=== PATIENT | male | born 1970 | race Two or more races ===

== ENCOUNTER 2020-03-12 18:58 | Emergency (ER) | payer OTHER ==
[~2020-03-12] VITALS: Ht 182.9 cm; Wt 86.2 kg
--- NOTE | 2020-03-12 21:30 | NUR ---
URINE COLLECTED. SENT TO LAB
--- NOTE | 2020-03-12 21:30 | NUR ---
BIBS FOR C/O ABD PAIN, BLOATING AND OCCASIONAL NAUSEA X 3 MOS, - VOMITING OR DIARRHEA, LBM: TODAY
[2020-03-12] MEDS ORDERED: ONDANSETRON HCL/PF 4 MG/2 ML VIAL ONE (21:43)
[2020-03-12] MEDS ORDERED: MORPHINE SULFATE INJ 4 MG/ML DISP.SYRIN ONE (21:43)
[2020-03-12] MEDS: IV NS 0.9% 1,000 ML BAG IV ONE (21:44)
[2020-03-12] MEDS: MORPHINE SULFATE INJ 2 MG/ML DISP.SYRIN IV ONE (21:44)
[2020-03-12] MEDS: ONDANSETRON HCL/PF 4 MG/2 ML VIAL IVP ONE (21:44)
--- NOTE | 2020-03-12 21:45 | NUR ---
X RAY AT BED SIDE
[2020-03-12 21:49] LABS: BASOPHILS # (AUTO) 0.4 /CMM (0.0-0.2); BASOPHILS % (AUTO) 4.6 % (0.0-2.0); EOSINOPHILS % (AUTO) 1.3 % (0.0-6.0); HEMATOCRIT 51 % (39-51); HEMOGLOBIN 16.4 g/dL (13.5-17.5); LYMPHOCYTES # (AUTO) 1.8 /CMM (0.8-4.8); LYMPHOCYTES % (AUTO) 22.9 % (20.0-44.0); MEAN CORPUSCULAR HGB CONC 32 g/dl (31.0-36.0); MEAN CORPUSCULAR VOLUME 88 fL (80-96); MONOCYTES # (AUTO) 0.5 /CMM (0.1-1.30); MONOCYTES % (AUTO) 6.1 % (2.0-12.0); NEUTROPHILS # (AUTO) 5.2 /CMM (1.8-8.9); NEUTROPHILS % (AUTO) 65.1 % (43.0-81.0); PLATELET COUNT (AUTO) 223 /CMM (150-450); RED BLOOD CELL COUNT(AUTO) 5.77 MIL/uL (4.5-6.0)
[2020-03-12 21:57] LABS: BILIRUBIN,URINE MODERATE (NEGATIVE); BLOOD, URINE Small Ery/uL (NEGATIVE); COLOR,URINE AMBER (YELLOW); LEUKOCYTE ESTERASE ,URINE Negative (NEGATIVE); NITRITE, URINE Negative (NEGATIVE); PROTEIN,URINE 100 mg/dl (NEGATIVE); UGLUCOSE Negative (NEGATIVE)
[2020-03-12 22:24] LABS: BACTERIA,URINE Rare /HPF (None Seen); SQUAMOUS EPITHELIAL CELL,UR Few /HPF (None Seen); WBC,URINE NONE SEEN /HPF (0-3)
[2020-03-12 22:42] LABS: CARBON DIOXIDE 23 mmol/L (21-32); CHLORIDE 101 mmol/L (98-107); GLUCOSE 103 mg/dL (74-106); POTASSIUM 3.7 mmol/L (3.5-5.1); SODIUM SERUM 139 mmol/L (136-145); UREA NITROGEN, BLOOD 13 mg/dL (7-18)
[2020-03-12 23:00] LABS: ALANINE AMINOTRANSFERASE 118 U/L (12-78); ALBUMIN 3.6 g/dL (3.4-5.0); ALKALINE PHOSPHATASE 99 U/L (46-116); ASPARTATE AMINOTRANSFERASE 69 U/L (15-37); BILIRUBIN,DIRECT 1.5 mg/dL (0.0-0.2); BILIRUBIN,TOTAL 3.4 mg/dL (0.2-1.0); LIPASE 203 U/L (73-393); TOTAL PROTEIN, SERUM 8.6 g/dL (6.4-8.2)
--- NOTE | 2020-03-12 23:49 | NUR ---
covid swab obtained and sent to lab
--- NOTE | 2020-03-13 | NUR ---
MEL TENORIO AT BED SIDE
--- NOTE | 2020-03-13 00:10 | NUR ---
Pt is medically stable for D/C. IV removed. Catheter intact and site benign. Pressure and 4x4 applied to site. No bleeding noted.Patient discharged to home in stable condition. Rx and Written and verbal after care instructions given. Patient verbalizes understanding of instruction.
[2020-03-13 00:11] VITALS: BP 131/86
== END 2020-03-13 00:11 | disposition home or self-care (01) ==
LOC: ER 19:01
DX: I50.9 Heart failure, unspecified (principal); R10.84 Generalized abdominal pain; Z20.828 Contact with and (suspected) exposure to other viral communicable diseases; I25.2 Old myocardial infarction; R91.8 Other nonspecific abnormal finding of lung field; I51.7 Cardiomegaly
CPT/HCPCS: 36415; 71045; 74176; 80048; 80076; 81001; 83690; 84484; 85025; 93005; 96361; 96374; 96375; 99285; C9803; J2270; J2405; U0003

== ENCOUNTER 2020-03-14 12:55 | Emergency (ER) | payer OTHER ==
[~2020-03-14] VITALS: Ht 170.2 cm; Wt 95.3 kg
--- NOTE | 2020-03-14 13:06 | NUR ---
ASSUME PAT CARE. C/O MID ABDOMINAL PAIN W/ SOB X 3 DAYS NOW. PT STATES WAS SEEN HERE 3 DAYS AGO FOR THE SAME THING. PT STATES MILNIMAL URINE AND FEELS LIKE HE IS DISTENDED. GOWNED AND PLACED ON MONITOR. VSS. AWAITING MD ASHRAF.
--- NOTE | 2020-03-14 13:11 | NUR ---
DR RUEDA AT BEDSIDE FOR EVAL
[2020-03-14 13:47] LABS: BASOPHILS % (AUTO) 0.6 % (0.0-2.0); EOSINOPHILS % (AUTO) 0.6 % (0.0-6.0); HEMATOCRIT 48 % (39-51); HEMOGLOBIN 15.6 g/dL (13.5-17.5); LYMPHOCYTES % (AUTO) 28.5 % (20.0-44.0); MEAN CORPUSCULAR HGB CONC 33 g/dl (31.0-36.0); MEAN CORPUSCULAR VOLUME 87 fL (80-96); MONOCYTES # (AUTO) 0.4 /CMM (0.1-1.30); MONOCYTES % (AUTO) 6.2 % (2.0-12.0); NEUTROPHILS # (AUTO) 4.5 /CMM (1.8-8.9); NEUTROPHILS % (AUTO) 64.1 % (43.0-81.0); PLATELET COUNT (AUTO) 222 /CMM (150-450); RED BLOOD CELL COUNT(AUTO) 5.47 MIL/uL (4.5-6.0)
[2020-03-14 13:51] LABS: CALCIUM, SERUM 8.4 mg/dL (8.5-10.1); CARBON DIOXIDE 28 mmol/L (21-32); CHLORIDE 101 mmol/L (98-107); CREATININE 0.9 mg/dL (0.6-1.3); GLUCOSE 140 mg/dL (74-106); POTASSIUM 4.7 mmol/L (3.5-5.1); SODIUM SERUM 136 mmol/L (136-145); UREA NITROGEN, BLOOD 20 mg/dL (7-18)
[2020-03-14 13:57] LABS: ALANINE AMINOTRANSFERASE 74 U/L (12-78); ALBUMIN 2.7 g/dL (3.4-5.0); ALKALINE PHOSPHATASE 83 U/L (46-116); ASPARTATE AMINOTRANSFERASE 44 U/L (15-37); BILIRUBIN,DIRECT 1.3 mg/dL (0.0-0.2); BILIRUBIN,TOTAL 2.4 mg/dL (0.2-1.0); LIPASE 177 U/L (73-393)
[2020-03-14] MEDS ORDERED: DEXAMETHASONE SOD PHOSPHATE 10 MG/ML VIAL IV ONE (14:30)
[2020-03-14] MEDS ORDERED: DEXAMETHASONE SOD PHOSPHATE 10 MG/ML VIAL ONE (14:30)
--- NOTE | 2020-03-14 14:33 | NUR ---
U/S TECH AT BEDSIDE FOR GALLBLADDER ULTRASOUND
[2020-03-14 14:39] LABS: BILIRUBIN,URINE MODERATE (NEGATIVE); BLOOD, URINE Negative Ery/uL (NEGATIVE); COLOR,URINE YELLOW (YELLOW); LEUKOCYTE ESTERASE ,URINE Negative (NEGATIVE); NITRITE, URINE Negative (NEGATIVE); PH,URINE 5.5 (5.0-8.0); PROTEIN,URINE 30 mg/dl (NEGATIVE); UGLUCOSE 100 MG/DL mg/dL (NEGATIVE); UROBILINOGEN,URINE >=8.0 EU/dL (0.2)
[2020-03-14 14:41] LABS: BACTERIA,URINE Few /HPF (None Seen); RBC,URINE 0-2 /HPF (0-2); SQUAMOUS EPITHELIAL CELL,UR None Seen /HPF (None Seen)
[2020-03-14 14:42] LABS: HYALINE CASTS, URINE Rare /LPF (None Seen)
--- NOTE | 2020-03-14 14:49 | NUR ---
IV removed. Catheter intact and site benign. Pressure and 4x4 applied to site. No bleeding noted.Patient discharged to home in stable condition. Written and verbal after care instructions given. Patient verbalizes understanding of instruction.
--- NOTE | 2020-03-14 14:51 | NUR ---
Patient discharged to home in stable condition. Written and verbal after care instructions given. Patient verbalizes understanding of instruction.
[2020-03-14 14:52] VITALS: BP 138/79
== END 2020-03-14 14:52 | disposition home or self-care (01) ==
LOC: ER 12:57
DX: J18.9 Pneumonia, unspecified organism (principal); R18.8 Other ascites; I25.2 Old myocardial infarction; Z98.890 Other specified postprocedural states; Z60.2 Problems related to living alone
CPT/HCPCS: 36415; 71045; 76705; 80048; 80076; 81001 ×2; 83690; 84484; 85025; 85730; 93005; 96374; 99285; J1100

== ENCOUNTER 2020-12-01 23:33 | Inpatient (IN) | payer OTHER ==
[~2020-12-01] VITALS: Ht 182.9 cm; Wt 98.0 kg
--- NOTE | 2020-12-01 23:58 | NUR ---
PRESENTED TO THE ER FOR C/O BLE WEEPING EDEMA, REDNESS AND PAIN X 4 DAYS. A, OX4, PT APEARS VERY YELLOW IN COLOR, NOTED W. RELETIVELY DISTENDED STOMACH. PT WAS ASSISTED IN BED 2 ER, WS PLACED ON A MONITOR. VSS. WILL CONT TO MONITOR
[2020-12-02] MEDS ORDERED: VANCOMYCIN 1 GM VIAL ONE (00:28)
[2020-12-02] MEDS ORDERED: VANCOMYCIN 1 GM in IV D5W 250 ML IV ONE (00:30)
[2020-12-02 00:45] LABS: BASOPHILS # (AUTO) 0.1 K/uL (0.0-0.2); BASOPHILS % (AUTO) 0.9 % (0.0-2.0); EOSINOPHILS % (AUTO) 0.4 % (0.0-6.0); HEMATOCRIT 41 % (39-51); HEMOGLOBIN 13.8 g/dL (13.5-17.5); LYMPHOCYTES # (AUTO) 1.4 K/uL (0.8-4.8); LYMPHOCYTES % (AUTO) 19.2 % (20.0-44.0); MEAN CORPUSCULAR HGB CONC 34 g/dl (31.0-36.0); MEAN CORPUSCULAR VOLUME 98 fL (80-96); MONOCYTES # (AUTO) 0.5 K/uL (0.1-1.30); NEUTROPHILS # (AUTO) 5.5 K/uL (1.8-8.9); NEUTROPHILS % (AUTO) 72.5 % (43.0-81.0); PLATELET COUNT (AUTO) 182 K/uL (150-450); RED BLOOD CELL COUNT(AUTO) 4.21 MIL/uL (4.5-6.0); WHITE BLOOD COUNT (AUTO) 7.5 K/uL (4.3-11.0)
[2020-12-02 01:18] LABS: ALANINE AMINOTRANSFERASE 25 U/L (12-78); ALBUMIN 1.8 g/dL (3.4-5.0); ALKALINE PHOSPHATASE 182 U/L (46-116); ASPARTATE AMINOTRANSFERASE 44 U/L (15-37); BILIRUBIN,DIRECT 8.9 mg/dL (0.0-0.2); BILIRUBIN,TOTAL 11.2 mg/dL (0.2-1.0); CARBON DIOXIDE 32 mmol/L (21-32); CHLORIDE 97 mmol/L (98-107); CREATININE 0.8 mg/dL (0.6-1.3); GLUCOSE 88 mg/dL (74-106); SODIUM SERUM 138 mmol/L (136-145); TOTAL PROTEIN, SERUM 7.2 g/dL (6.4-8.2); UREA NITROGEN, BLOOD 13 mg/dL (7-18)
[2020-12-02 01:19] LABS: POTASSIUM 2.5 mmol/L (3.5-5.1)
--- NOTE | 2020-12-02 01:30 | NUR ---
US TECH AT BED SIDE
[2020-12-02 01:46] LABS: D-DIMER 14.38 mg/L(FEU (0.17-0.50)
[2020-12-02] MEDS ORDERED: IV PREMIX D5 1/2NS + KCL 1,000 ML IV ONE ×2 (02:00→02:21)
[2020-12-02] MEDS ORDERED: POTASSIUM CHLORIDE 20 MEQ TAB.PRT.SR PO ONE ×2 (02:00→02:21)
--- NOTE | 2020-12-02 02:19 | NUR ---
panel paged per dr phan.
--- NOTE | 2020-12-02 02:34 | NUR ---
316-2 ACCORDING TO NURSING POLICY INTERN.
[2020-12-02] MEDS ORDERED: ENOXAPARIN SODIUM 60 MG/0.6 ML DISP.SYRIN SQ ONE (02:40)
[2020-12-02] MEDS ORDERED: ENOXAPARIN SODIUM 30 MG/0.3 ML DISP.SYRIN ONE (02:40)
--- NOTE | 2020-12-02 02:49 | NUR ---
REPORT GIVEN TO LIANA ESPINOZA
--- NOTE | 2020-12-02 02:53 | NUR ---
PT DOES NOT REMEMBER THE NAME OF HIS HOME MEDS AND DOES NOT HAVE THE LIST WITH HIM,. UNABLE TO DO THE MED RECON
--- NOTE | 2020-12-02 02:58 | NUR ---
PT WAS TRANSFERRED TO 316 UNDER ACLS
[2020-12-02] MEDS ORDERED: Z GUARD REMEDY 2 OZ OINT TP PRN (03:00)
[2020-12-02] MEDS ORDERED: ONDANSETRON HCL/PF 4 MG/2 ML VIAL IVP PRN (03:00)
[2020-12-02] MEDS ORDERED: ACETAMINOPHEN 325 MG TABLET PO PRN (03:00)
[2020-12-02] MEDS ORDERED: ENOXAPARIN SODIUM 80 MG/0.8 ML DISP.SYRIN SQ ONE (03:00)
[2020-12-02] MEDS ORDERED: ZOLPIDEM TARTRATE 5 MG TABLET PO PRN (03:00)
[2020-12-02] MEDS ORDERED: MAGNESIUM HYDROXIDE 30 ML UDC PO PRN (03:00)
[2020-12-02] MEDS ORDERED: MORPHINE SULFATE INJ 2 MG/ML DISP.SYRIN IV PRN (03:20)
--- NOTE | 2020-12-02 03:35 | NUR ---
MUSICAL PERFORMERSENIOR PENSIONS ADMINISTRATOR NOTES RECEIVED PT VIA VINCENT TO RM.316-2 ACCOMPANIED BY 2 STAFF/RN. PT A/OX4, PRIMARILY EMIRATI, BUT SPEAKS WELSH WELL. PT C/O PAIN 10/10 ON HIS L-LEG DOWN TO HIS ANKLE. CALLED TO [facility] AND OBTAINED ORDER: MORPHINE 2MG IV Q4HR PRN. CALLED TO PHARMACY AND VERIFIED, AND GIVEN TO PT SOON MED BECAME ACTIVE. PT PLACED IN COMFORTABLE POSITION, PREFERS TO LIE DOWN ON HIS L-SIDE. PROVIDED ORIENTATION TO ROOM AND STAFF. HEALTH/MED TEACHINGS DONE. PT VERBALIZED UNDERSTANDING. PT PLACED ON TELE MONITOR, AND CURRENTLY READS SR, HR 97. PT IN NO ACUTE DISTRESS. SAFETY MEASURES IN PLACE, BED IN LOWEST LOCKED POSITION, S/R UP X2, CALL LIGHT AND TABLE WITHIN EASY REACH.
--- NOTE | 2020-12-02 04:03 | NUR ---
RN NOTE REASSESSED PAIN, PT VERBALIZED 1/10 LEVEL.
[2020-12-02 04:25] VITALS: BP 141/71
--- NOTE | 2020-12-02 06:30 | NUR ---
RN NOTE PT ABLE TO AMBULATE TO BR, SLOWLY WITH STANDBY ASSIST, STATES LEG PAIN IS TOLERABLE.
[2020-12-02] MEDS ORDERED: METF-440 PO (07:24)
[2020-12-02] MEDS ORDERED: FERR325T24 PO (07:24)
[2020-12-02] MEDS ORDERED: APIX5TAB PO (07:24)
[2020-12-02] MEDS ORDERED: CARV6.252 PO (07:24)
[2020-12-02] MEDS ORDERED: FURO40TA5 PO (07:24)
[2020-12-02] MEDS ORDERED: POTA-10 PO (07:24)
[2020-12-02] MEDS ORDERED: ATOR10TA PO (07:24)
[2020-12-02] MEDS ORDERED: PANT40TA49 PO (07:24)
[2020-12-02] MEDS ORDERED: ASPI-1169 PO (07:24)
[2020-12-02] MEDS ORDERED: IPRA12.9 INH (07:24)
[2020-12-02 08:17] VITALS: BP 106/76
--- NOTE | 2020-12-02 09:00 | NUR ---
tele repairer switchgear: cardio consult seen and examined by dr. drew with new orders. orders acknowledged.
[2020-12-02] MEDS: PANTOPRAZOLE 40 MG TABLET.DR PO SCH (09:04)
[2020-12-02] MEDS: IPRATROPIUM NEB FS 0.5 MG/2.5 ML AMPUL.NEB NEB SCH ×2 (09:20→20:18)
[2020-12-02] MEDS: METFORMIN 500 MG TABLET PO SCH ×2 (09:48→16:53)
[2020-12-02] MEDS: POTASSIUM CHLORIDE 20 MEQ TAB.PRT.SR PO SCH ×6 (09:48→20:18)
[2020-12-02] MEDS: CARVEDILOL 6.25 MG TABLET PO SCH ×2 (09:48→16:54)
[2020-12-02 12:00] VITALS: BP 96/74
--- NOTE | 2020-12-02 13:15 | NUR ---
tele manuscript editor: md visit seen and examined by dr. fleming at this time and updated plan of care. pt verbalized understanding. ble still with redness and swelling, weeping decrease. will continue to monitor.
[2020-12-02] MEDS ORDERED: INSULIN REGULAR, HUMAN 100 UNIT/ML 3 ML VIAL SQ PRN (13:30)
[2020-12-02] MEDS ORDERED: DEXTROSE 50%-WATER 50 ML DISP.SYRIN IV PRN (13:30)
--- NOTE | 2020-12-02 13:35 | NUR ---
tele medical laboratory technical officer: notes dr. leung notified re: consult to ble ulcers, spoke to him over the phone. pt made aware.
--- NOTE | 2020-12-02 14:08 | NUR ---
tele neck fitter: notes pt for nm pulmonary perfusion with/ventilation and verbalized understanding. consent signed. no distress noted. instructed to call for assistance.
[2020-12-02 14:12] LABS: BILIRUBIN,URINE LARGE (NEGATIVE); COLOR,URINE AMBER (YELLOW); LEUKOCYTE ESTERASE ,URINE TRACE (NEGATIVE); NITRITE, URINE POSITIVE (NEGATIVE); PH,URINE 5.5 (5.0-8.0); PROTEIN,URINE 100 mg/dl (NEGATIVE); UGLUCOSE NEGATIVE (NEGATIVE); UROBILINOGEN,URINE >=8.0 EU/dL (0.2)
[2020-12-02] MEDS: CEFTRIAXONE 1 G in IV D5W 50 ML IV SCH (14:36)
[2020-12-02] MEDS: FUROSEMIDE 40 MG/4 ML VIAL IV SCH ×3 (14:36→22:56)
[2020-12-02 14:38] LABS: CREATININE, URINE 170.1 MG/DL (30.0-125.0); URINE TOTAL PROTEIN 118.3 mg/dL (0-11.9)
[2020-12-02 15:08] LABS: BACTERIA,URINE 1+ /HPF (None Seen)
[2020-12-02 16:10] LABS: CALCIUM, SERUM 7.6 mg/dL (8.5-10.1); CREATININE 0.9 mg/dL (0.6-1.3); POTASSIUM 3.9 mmol/L (3.5-5.1)
[2020-12-02 16:14] VITALS: BP 106/66
[2020-12-02] MEDS: APIXABAN 5 MG TABLET PO SCH (16:53)
[2020-12-02] MEDS: BLOOD SUGAR DIAGNOSTIC 1 EACH STRIP IN SCH ×2 (17:16→21:07)
--- NOTE | 2020-12-02 18:45 | NUR ---
m/s finish patcher: dpm consult seen and examined by dr. chong with orders. orders acknowledged.
--- NOTE | 2020-12-02 19:00 | NUR ---
in be alert and orientated x$ speech clear good eye contact moviivg all extremities patricia legs red swollen skin tough silvadene ordered and started tonight to both lgs explaining to the patients the benefits of this cream left open to air
--- NOTE | 2020-12-02 19:00 | NUR ---
tele bobbin hauler: notes report given to annemarie santillan) for continuity of care.
[2020-12-02 20:00] VITALS: BP_SYST 89; BP_SYST 98; BP_DIAS 62; BP_DIAS 69
[2020-12-02 22:56] VITALS: BP 86/62
[2020-12-03] VITALS: BP 90/67
[2020-12-03 04:00] VITALS: BP 96/70
--- NOTE | 2020-12-03 04:17 | NUR ---
CLOSING NOTES: noted he is able to change his own position in the bed patricia legs red and swollen started the silvadene cream treatment his B/P is running under 95 systolic thru the night not given the 3rd dose of lasix d/t this his urine is tea colored void in the urinal SR on the game manager thru the night
[2020-12-03] MEDS: BLOOD SUGAR DIAGNOSTIC 1 EACH STRIP IN SCH ×2 (06:08→12:00)
[2020-12-03 06:49] LABS: BASOPHILS # (AUTO) 0.1 K/uL (0.0-0.2); BASOPHILS % (AUTO) 1.2 % (0.0-2.0); EOSINOPHILS % (AUTO) 0.6 % (0.0-6.0); HEMATOCRIT 37 % (39-51); HEMOGLOBIN 12.3 g/dL (13.5-17.5); LYMPHOCYTES # (AUTO) 1.7 K/uL (0.8-4.8); LYMPHOCYTES % (AUTO) 24.4 % (20.0-44.0); MEAN CORPUSCULAR HGB CONC 34 g/dl (31.0-36.0); MEAN CORPUSCULAR VOLUME 98 fL (80-96); MONOCYTES # (AUTO) 0.5 K/uL (0.1-1.30); MONOCYTES % (AUTO) 6.4 % (2.0-12.0); NEUTROPHILS # (AUTO) 4.8 K/uL (1.8-8.9); NEUTROPHILS % (AUTO) 67.4 % (43.0-81.0); PLATELET COUNT (AUTO) 183 K/uL (150-450); RED BLOOD CELL COUNT(AUTO) 3.74 MIL/uL (4.5-6.0); WHITE BLOOD COUNT (AUTO) 7.2 K/uL (4.3-11.0)
[2020-12-03] MEDS ORDERED: PANTOPRAZOLE 40 MG TABLET.DR PO SCH (07:30)
[2020-12-03 07:32] LABS: ALANINE AMINOTRANSFERASE 19 U/L (12-78); ALBUMIN 1.6 g/dL (3.4-5.0); ALKALINE PHOSPHATASE 142 U/L (46-116); ASPARTATE AMINOTRANSFERASE 35 U/L (15-37); BILIRUBIN,TOTAL 9.8 mg/dL (0.2-1.0); CALCIUM, SERUM 7.7 mg/dL (8.5-10.1); CARBON DIOXIDE 32 mmol/L (21-32); CHLORIDE 98 mmol/L (98-107); GLUCOSE 91 mg/dL (74-106); PHOSPHORUS 3.4 mg/dL (2.5-4.9); POTASSIUM 3.7 mmol/L (3.5-5.1); SODIUM SERUM 137 mmol/L (136-145); TOTAL PROTEIN, SERUM 6.2 g/dL (6.4-8.2); UREA NITROGEN, BLOOD 17 mg/dL (7-18)
[2020-12-03 07:40] LABS: LDL 41 mg/dL (0-99); THYROID STIMULATING HORMONE 3.421 uIU/mL (0.358-3.74); TRIGLYCERIDES 101 mg/dL (30-150)
[2020-12-03] MEDS: PANTOPRAZOLE 40 MG TABLET.DR PO SCH (07:41)
--- NOTE | 2020-12-03 07:46 | NUR ---
MS/RN OPENING NOTES RECEIVED PATIENT ON BED AWAKE ALERT AND ORIENTEDX4. PATIENT IS ON ROOM AIR RIGHT NOW AND PATIENT VERBALIZED OXYGEN IS JUST FOR COMFORT. PATIENT IN NO APPARENT RESPIRATORY DISTRESS NOTED. NO COMPLAINED OF PAIN NOTED AT THIS TIME. WILL CONTINUE OT MONITOR.
[2020-12-03 08:02] VITALS: BP 94/70
[2020-12-03] MEDS: IPRATROPIUM NEB FS 0.5 MG/2.5 ML AMPUL.NEB NEB SCH (08:27)
[2020-12-03] MEDS: POTASSIUM CHLORIDE 20 MEQ TAB.PRT.SR PO SCH (08:32)
[2020-12-03] MEDS: METFORMIN 500 MG TABLET PO SCH (08:32)
[2020-12-03 09:00] VITALS: BP 94/70
[2020-12-03] MEDS: CARVEDILOL 6.25 MG TABLET PO SCH (09:00)
[2020-12-03] MEDS: APIXABAN 5 MG TABLET PO SCH (09:14)
[2020-12-03] MEDS: SILVER SULFADIAZINE 50 GM JAR TP SCH ×2 (09:18→12:03)
[2020-12-03 09:22] LABS: CHOLESTEROL 45 mg/dL (<200)
[2020-12-03 09:41] LABS: HDL CHOLESTEROL < 10 mg/dL (40-60)
--- NOTE | 2020-12-03 11:45 | NUR ---
"SS consult SS consult requested for homelessness. Pt is a 50-year-old, male. SW met with pt at his bedside in the med-surg unit. Pt was alert and oriented x4. Pt's behavior was cooperative. Pt was in a euthymic mood with an anxious affect. Pt appeared well-groomed and appropriately dressed. Per chart, pt presented to the ED on 12/02/20. Pt stated that he is currently homeless and has been homeless for the last four months. Pt provided SW with his updated contact information [[phone]]. Pt has been living on the street or in his car. Pt was previously living with his spouse. Pt is not legally from his spouse but is no longer able to live with his spouse. Pt stated that he is occasionally able to visit his children. Pt stated that his spouse is his primary source of support at this time, and most of his family live in [facility]. Pt reported that he is ambulatory with a walker. Pt is currently receiving SSDI as a source of income. Pt is independent with his ADL's. Pt denied hx of substance use. Pt denied hx of mental illness. Pt denied current SI/HI. SW offered the pt homeless resources. Pt accepted the resources and thanked SW. Pt signed the homeless waiver and SW filed the waiver in the pt's chart. Pt stated that he plans to return to his prior living arrangement at the time of D/C. Pt plans to return to his car as he is concerned that it may get towed away. Pt stated that he is able to arrange transportation from the hospital independently. PLAN: Pt plans to return to his prior living arrangement at the time of D/C. No further SS intervention at this time, however, SW will remain available as needed. RESOURCES: Year-round shelters: [facility] [place] [address] [place] [address] ; [facility] [place] [address] [place] [address]; [facility] [address] [facility] [address] S[address] 4 | [facility] [place] Provider: First to Serve Address: [address] [place] [address], [facility] # of Beds: 48 Population Served: [facility] Provider: First to Serve Address: [address] [facility], [address] # of Beds: 73 Population Served: [place] S[place] 6 | [facility] Provider: [facility] Address: [address] [facility] [address] # of Beds: 63 Population Served: [place] SPA 3 | [facility] Provider: [facility] [place] Address: [address] [facility], [address] # of Beds: 75 Population Served: [place] S[place] 8 | [facility] Provider: [facility] [place] Address: [address] [facility], [address] # of Beds: 80 Population Served: [place] [facility] 1 | [facility] Provider: [facility] [place] Address: [address] [place] [address], [facility] # of Beds: 85 Population Served: [facility] 2 | [facility] Provider: [place] [facility] Address: Confidential (please call for location) # of Beds: 52 Population Served: [place] [facility] 4 | [facility] Provider: [facility] Address: [address] [facility], [address] # of Beds: 49 Population Served: [place] [facility] Provider: First To Serve Address: [address] [facility], [address] # of Beds: 27 Population Served: [place] Hygiene: [facility]: [address] [place] ; [facility] [facility] [address] [facility] ; [facility] [address] . Food Resources: [place] [facility] at [facility]- [address] [place]; Meet Each Need with [facility]ign[facility] ([facility]) [id number] [place] [address]; [facility] [address] [facility]; [facility] [address] [place] [address] [place]. Mental Health resources provided: [facility] [address] [place] [address] ; [facility] [place] [address] [address], [place] [address] ; [facility] [address] [facility] [place], [place] [id number] ; [facility] [address] [place], [place] [id number] Healthcare Clinics: [facility] [address] [facility], [address] [place]. [place] ; [facility] [address] [facility] [address] [place] [address]; [facility] [address] [facility]. [place] [phone] Counseling--Outpatient [facility] [address] [facility], [place] [address] (Specializes in in-depth psychotherapy for emotional distress: anxiety, depression, interpersonal conflicts, life transitions, childhood abuse) PSYCHIATRIC OUTPATIENT SERVICES [facility] Partial Hospitalization and Intensive Outpatient Program (Managed Care and [place] Only) [address] [facility] [id number] [facility] Partial Hospitalization and Outpatient Program [address] [address] [facility]. [address] [place], [place] [id number] [facility] Partial Hospitalization and Outpatient Program [address] [place], [place] [phone] [facility] [place] [facility] [address] [facility]. [address] [place], [place] [phone] [facility] Partial Hospitalization and Outpatient Program [address] [address], [place] [phone] "
[2020-12-03 12:06] LABS: *SPE A/G RATIO 0.5 (0.7-1.7); *SPE ALPHA-1-GLOBULIN 0.4 g/dL (0.0-0.4); *SPE ALPHA-2-GLOBULIN 0.6 g/dL (0.4-1.0); *SPE BETA GLOBULIN 1.1 g/dL (0.7-1.3); *SPE M-SPIKE Not Observed g/dL (Not Observed)
--- NOTE | 2020-12-03 12:25 | NUR ---
RN NOTES PATIENT IS OUT IN THE UNIT. [facility] NURSE PRACTITIONER BY [employer]
[2020-12-03] MEDS ORDERED: MORPHINE SULFATE INJ 2 MG/ML DISP.SYRIN IV PRN (12:30)
--- NOTE | 2020-12-03 13:20 | NUR ---
rn notes patient came back from nuclear medicine procedure.
[2020-12-03] MEDS: CEFTRIAXONE 1 G in IV D5W 50 ML IV SCH (13:30)
[2020-12-03] MEDS ORDERED: ZOLP5TAB2 PO (14:17)
[2020-12-03] MEDS ORDERED: HYDR-3972 PO (14:17)
[2020-12-03] MEDS ORDERED: SULF1TAB48 PO (14:17)
[2020-12-03] MEDS ORDERED: CEPH500C2 PO (14:17)
--- NOTE | 2020-12-03 15:22 | NUR ---
RN NOTES PATIENT IS ALERT AND ORIENTED X4. PATIENT IS ON ROOM AIR. PATIENT IN NO APPARENT RESPIRATORY DISTRESS NOTED. NO COMPLAINED OF NOTED. SEEN AND EXAMINED BY MD WITH ORDERS MADE AND CARRIED OUT. ALL DUE MEDICATIONS WAS GIVEN. DISCHARGED INSTRUCTIONS WAS GIVEN AND PATIENT VERBALIZED UNDERSTANDING. PATIENT LEFT THE HOSPITAL IN MEDICALLY STABLE CONDITION. PATIENT IS A SELF CARE AND WENT BACK TO STREET. TAP CARD WAS PROVIDED.
== END 2020-12-03 15:00 | disposition home or self-care (01) | DRG 198 ==
LOC: ER 23:36 → TRANSITION 12-02 02:34 → TELE 12-02 02:35 → MED 12-03 08:05
PROVIDERS: ADMIT Nurse Practitioner Acute Care; ATTEND Nurse Practitioner Acute Care
DX: I25.10 Atherosclerotic heart disease of native coronary artery without angina pectoris (principal); J90 Pleural effusion, not elsewhere classified; I42.9 Cardiomyopathy, unspecified; E44.0 Moderate protein-calorie malnutrition; L02.416 Cutaneous abscess of left lower limb; I11.0 Hypertensive heart disease with heart failure; I50.20 Unspecified systolic (congestive) heart failure; R18.8 Other ascites; L03.115 Cellulitis of right lower limb; L03.116 Cellulitis of left lower limb; K74.60 Unspecified cirrhosis of liver; K76.0 Fatty (change of) liver, not elsewhere classified; K82.8 Other specified diseases of gallbladder; E78.5 Hyperlipidemia, unspecified; E87.6 Hypokalemia; I25.2 Old myocardial infarction; E11.9 Type 2 diabetes mellitus without complications; Z98.890 Other specified postprocedural states; F17.210 Nicotine dependence, cigarettes, uncomplicated; Z79.01 Long term (current) use of anticoagulants; I87.2 Venous insufficiency (chronic) (peripheral); I87.8 Other specified disorders of veins; F10.11 Alcohol abuse, in remission; Y90.9 Presence of alcohol in blood, level not specified; J98.11 Atelectasis; E66.9 Obesity, unspecified; Z68.29 Body mass index [BMI] 29.0-29.9, adult; I89.0 Lymphedema, not elsewhere classified; K80.20 Calculus of gallbladder without cholecystitis without obstruction
CPT/HCPCS: 36415; 71045-TC; 71250-TC; 73600-TC; 76700-TC; 78582; 80048-TC; 80053-TC; 80061-TC; 80076-TC; 81001; 82140-TC; 82570-TC; 82962-TC; 83735-TC; 83880; 84100-TC; 84132-TC; 84155; 84155-TC; 84165; 84443-TC; 84484-TC; 85025-TC; 85378-TC; 85730-TC; 87040-TC; 87070-TC; 87081-TC; 87086-TC; 87186-TC; 93307-TC; 93970-TC; 94799-TC; C9803; G0378; J0696; J1650; J1815; J1940; J2270; J2405; J3370; J3490; J7050; J7060

== ENCOUNTER 2021-02-09 21:30 | Inpatient (IN) | payer OTHER ==
[~2021-02-09] VITALS: Ht 167.6 cm; Wt 92.1 kg
[2021-02-09] MEDS: POTASSIUM CL. PREMIX PERIPHER. 50 ML IV SCH
[~2021-02-09 21:30] MED LIST: APIX5TAB PO; ASPI-1169 PO; ATOR10TA PO; CARV6.252 PO; CEPH500C2 PO; FERR325T24 PO; FURO40TA5 PO; HYDR-3972 PO; IPRA12.9 INH; METF-440 PO; PANT40TA49 PO; POTA-10 PO; SULF1TAB48 PO; ZOLP5TAB2 PO
--- NOTE | 2021-02-09 21:49 | NUR ---
PT BIBFAMILY C/O CP AND GEN ABD PAIN X2 DAYS. +5 DAYS CONSTIPATED. PLACED IN BED 6 ON MONITOR AND PULSE OX. AWAITING ER MD FOR EVAL AND ORDERS. NO ACUTE DISTRESS NOTED. VITALS STABLE.
[2021-02-09 21:59] LABS: BASOPHILS # (AUTO) 0.1 K/uL (0.0-0.2); BASOPHILS % (AUTO) 1.1 % (0.0-2.0); EOSINOPHILS % (AUTO) 1.3 % (0.0-6.0); HEMATOCRIT 41 % (39-51); HEMOGLOBIN 13.6 g/dL (13.5-17.5); LYMPHOCYTES # (AUTO) 1.5 K/uL (0.8-4.8); LYMPHOCYTES % (AUTO) 23.1 % (20.0-44.0); MEAN CORPUSCULAR HGB CONC 33 g/dl (31.0-36.0); MEAN CORPUSCULAR VOLUME 101 fL (80-96); MONOCYTES # (AUTO) 0.5 K/uL (0.1-1.30); MONOCYTES % (AUTO) 7.8 % (2.0-12.0); NEUTROPHILS # (AUTO) 4.3 K/uL (1.8-8.9); NEUTROPHILS % (AUTO) 66.7 % (43.0-81.0); PLATELET COUNT (AUTO) 157 K/uL (150-450); RED BLOOD CELL COUNT(AUTO) 4.05 MIL/uL (4.5-6.0); WHITE BLOOD COUNT (AUTO) 6.5 K/uL (4.3-11.0)
[2021-02-09 22:55] LABS: ALANINE AMINOTRANSFERASE 36 U/L (12-78); ALBUMIN 2.2 g/dL (3.4-5.0); ALKALINE PHOSPHATASE 168 U/L (46-116); ASPARTATE AMINOTRANSFERASE 50 U/L (15-37); BILIRUBIN,DIRECT 1.8 mg/dL (0.0-0.2); BILIRUBIN,TOTAL 2.1 mg/dL (0.2-1.0); CALCIUM, SERUM 7.1 mg/dL (8.5-10.1); CARBON DIOXIDE 34 mmol/L (21-32); CHLORIDE 90 mmol/L (98-107); CREATININE 0.9 mg/dL (0.6-1.3); GLUCOSE 110 mg/dL (74-106); SODIUM SERUM 130 mmol/L (136-145); TOTAL PROTEIN, SERUM 7.2 g/dL (6.4-8.2); UREA NITROGEN, BLOOD 13 mg/dL (7-18)
[2021-02-09 23:26] LABS: POTASSIUM 2.6 mmol/L (3.5-5.1)
[2021-02-09] MEDS ORDERED: POTASSIUM CHLORIDE 20 MEQ TAB.PRT.SR PO ONE (23:30)
[2021-02-10] MEDS: POTASSIUM CL. PREMIX PERIPHER. 50 ML IV SCH ×3 (01:00→03:00)
--- NOTE | 2021-02-10 01:16 | NUR ---
MRSA SWAB COLLECTED AND SENT TO LAB. PATIENT'S BELONGINGS LIST DONE.
--- NOTE | 2021-02-10 01:35 | NUR ---
RESTING COMFORTABLY. VSS.
--- NOTE | 2021-02-10 02:13 | NUR ---
REPORT GIVEN TO NAYLA GAINES FOR ALYSSA
[2021-02-10] MEDS ORDERED: ZOLPIDEM TARTRATE 5 MG TABLET PO PRN (02:30)
[2021-02-10] MEDS ORDERED: MAGNESIUM HYDROXIDE 30 ML UDC PO PRN (02:30)
[2021-02-10] MEDS ORDERED: ONDANSETRON HCL/PF 4 MG/2 ML VIAL IVP PRN (02:30)
[2021-02-10] MEDS ORDERED: Z GUARD REMEDY 2 OZ OINT TP PRN ×2 (02:30→08:30)
--- NOTE | 2021-02-10 02:45 | NUR ---
RN NOTES Received pt. from ER with Dx. of CHF , CP a/ox3, with period of confusion, SR on tele monitor HR-68, noticed patient has abdominal ascites, admission instruction was rendered, patient doesn't want to cooperate for skin assessment but manage to persuade him to let us do the skin assessment. O2 at 3L saturating 98%, denies pain, no SOB, patient doesn't want to answer our admission questions , old chart was pulled out from the computer, call light within reach, siderailsupx2, will continue to monitor
[2021-02-10 04:25] VITALS: BP 128/63
--- NOTE | 2021-02-10 06:55 | NUR ---
RN NOTES Patient is sleeping but arousable, not in distress, no pain noted, call light within reach, siderailsupx2, pt. needs attended
--- NOTE | 2021-02-10 07:15 | NUR ---
SPRINKLER FITTER APPRENTICE OPENING NOTES RECEIVED PATIENT RESTING IN BED. PATIENT IS A/O X3. PATIENT IS BREATHING EVENLY AND NONLABORED ON 4 LPM VIA NASAL CANNULA. NO SIGNS OF DISTRESS NOTED. PATIENT DOES NOT COMPLAIN OF PAIN AT THIS TIME. PATIENT ON TELE MONITOR SHOWING NSR. PATIENT HAS LAC # 18 GAUGE PATENT AND INTACT. PATIENT NOTED WITH LOWER EXTREMITY WOUNDS, WOUND CONSULT ORDERED. SAFETY MEASURES IN PLACE BED LOW LOCKED CALL LIGHT WITHIN REACH, BED ALARM ON. WILL CONTINUE TO MONITOR
--- NOTE | 2021-02-10 08:16 | NUR ---
WOUND CARE CONSULT: PT PRESENTS WITH ULCER TO LEFT LOWER LEG, PRESENT ON ADMISSION. DR DEUTSCH NOTIFIED OF DPM CONSULT REQUEST. RECOMMENDATIONS MADE FOR SKIN PROTECTION. DISCUSSED WITH NURSING STAFF. IN AGREEMENT WITH PLAN OF CARE. Addendum: 02/10/21 at 0818 by VAISHNAVI CALIXTO WNDNU Amended: Links added.
[2021-02-10] MEDS: POTASSIUM CHLORIDE 20 MEQ TAB.PRT.SR PO SCH (08:20)
[2021-02-10] MEDS: FUROSEMIDE 40 MG/4 ML VIAL IV SCH (08:20)
[2021-02-10] MEDS: ACETAMINOPHEN 325 MG TABLET PO PRN (08:27)
[2021-02-10 08:40] VITALS: BP 92/73
[2021-02-10] MEDS: Z GUARD REMEDY 2 OZ OINT TP SCH (08:45)
--- NOTE | 2021-02-10 09:45 | NUR ---
RN NOTE PATIENT IS COMPLAINING OF SEVERE PAIN IN THE LOWER BACK, TYLENOL WAS GIVEN NOT EFFECTIVE. MD NOTIFIED GAVE ONE TIME ORDER FOR TORADOL 30 MG IVP FOR PAIN. WILL CONTINUE TO MONITOR
[2021-02-10] MEDS ORDERED: KETOROLAC TROMETHAMINE INJ 30 MG/ML VIAL IV PRN (10:00)
[2021-02-10] MEDS ORDERED: ZOLP5TAB8 PO (11:35)
--- NOTE | 2021-02-10 12:36 | NUR ---
RN NOTE PATIENT COMPLAINED OF PAIN AT IV SITE. ASKED TO REMOVE. IV ACCESS REMOVED CATHETER TIP INTACT, PRESSURE DRESSING APPLIED, NO BLEEDING NOTED. NEW IV ACCESS PLACE ON R WRIST # 22 PATENT AND INTACT.
[2021-02-10] MEDS: CARVEDILOL 6.25 MG TABLET PO SCH ×3 (13:30→16:08)
[2021-02-10] MEDS ORDERED: POTASSIUM CHLORIDE 20 MEQ TAB.PRT.SR PO ONE (13:30)
--- NOTE | 2021-02-10 14:11 | NUR ---
RN NOTE PATIENT NOTED WITH EPISODE OF SOB AND DECREASED BLOOD PRESSURE, MD NOTIFIED, GAVE OKAY TO HOLD CARVEDILOL X 1 TIME AND NO OTHER ORDERS AT THIS TIME. PATIENTS BED PLACED IN HIGH POSITION AND SOB SUBSIDED. WILL CONTINUE TO MONITOR
[2021-02-10] MEDS ORDERED: IOHEXOL-350 100 ML VIAL IV ONE ×3 (14:43→14:50)
[2021-02-10] MEDS ORDERED: IV NS 0.9% 0 ML IV ONE (14:43)
--- NOTE | 2021-02-10 15:18 | NUR ---
ATTEMPTED CTA ABDOMINAL AORTA WITH RUNOFF TWICE, PT SOB AFTER 1-2 MIN OF LYING FOR SCAN. ELEVATED HEAD AND TORSO FOR 2ND ATTEMPT AND PT UNABLE TO TOLERATE DIFFICULTY BREATHING AGAIN. O2 LEVELS STARTED TO DROP TO 90. PT SENT BACK TO ROOM
--- NOTE | 2021-02-10 16:08 | NUR ---
RN NOTE PATIENT NOTED WITH DECREASED BLOOD PRESSURE AND BRIEF EPISODE OF HR IN THE 30S , MD NOTIFIED STAT POTASSIUM AND EKG ORDERED. WILL CONTINUE TO MONITOR
--- NOTE | 2021-02-10 18:35 | NUR ---
CORPORATE TRAVEL COORDINATOR CLOSING NOTES PATIENT RESTING IN BED. PATIENT IS A/O X3. PATIENT IS BREATHING EVENLY AND NONLABORED ON 4 LPM VIA NASAL CANNULA. NO SIGNS OF DISTRESS NOTED. PATIENT DOES NOT COMPLAIN OF PAIN AT THIS TIME. PATIENT ON TELE MONITOR SHOWING NSR. PATIENT HAS LAC # 20 GAUGE PATENT AND INTACT & R WRIST #22 PATENT AND INTACT. PATIENT NOTED WITH LOWER EXTREMITY WOUNDS, WOUND TREATMENT PERFORMED DURING SHIFT. ALL MEDICATIONS GIVEN ORDERED SAFETY MEASURES IN PLACE BED LOW LOCKED CALL LIGHT WITHIN REACH, BED ALARM ON. WILL ENDORSE TO ONCOMING SHIFT
--- NOTE | 2021-02-10 19:30 | NUR ---
RN NOTE RECEIVED PATIENT IN BED RESTING ALERT ORIENTED X3 VERBALLY RESPONSIVE ON TELE MONITORING ON 5L OXYGEN VIA NASAL CANNULA O2:96% IV SITE IS ON LEFT AC #20 AND RIGHT WRIST #22 INTACT PATENT INCONTINENT TO BOWEL/BLADDER,NPO EXCEPT MED FOR TOMORROW MORNING PROCEDURE,SAFETY MEASURE IMPLEMENT BED IN LOW POSITION AND LOCKED HEAD OF THE BED ELEVATED CALL LIGHT WITHIN REACH CONTINUE TO MONITOR.
[2021-02-10 20:00] VITALS: BP 98/76
--- NOTE | 2021-02-10 22:49 | NUR ---
RN NOTE PATIENT REMOVED HIS IV LINE ON LEFT AC,APPLIED DRESSING ON IT NO BLEEDING CONTINUE TO MONITOR
--- NOTE | 2021-02-10 23:04 | NUR ---
RN NOTE STARTED A NEW IV LINE ON LEFT AC #20 WITH GOOD BLOOD RETURN NO INFILTRATION WITH DRESSING INTACT AND DRY.
--- NOTE | 2021-02-10 23:52 | NUR ---
RN NOTE REPORT GIVEN TO NELSY GAINES FOR CONTINUATION OF CARE
--- NOTE | 2021-02-10 23:56 | NUR ---
brimming machine operator opening notes Received Pt from LIANA Alcaraz. Pt is resting in bed comfortably. Pt is alert and orientedX3. Pt speaks Namibian and able to make needs known. Respiration is normal in 5 L NC. No SOB. No S/S of distress noted. IV sites at R wrist # 22 is clean, intact and SL. Pt is NPO. Safety precautions is maintained. Bed at low position, brakes locked, side rails upX3 and call light is within reach. Will continue to monitor.
[2021-02-11] VITALS (7 sets, daily range): BP systolic 80–144; BP diastolic 60–98
[2021-02-11 06:35] LABS: BASOPHILS % (AUTO) 0.3 % (0.0-2.0); HEMATOCRIT 44 % (39-51); HEMOGLOBIN 14.4 g/dL (13.5-17.5); LYMPHOCYTES # (AUTO) 2.1 K/uL (0.8-4.8); LYMPHOCYTES % (AUTO) 32.4 % (20.0-44.0); MEAN CORPUSCULAR HGB CONC 33 g/dl (31.0-36.0); MEAN CORPUSCULAR VOLUME 102 fL (80-96); MONOCYTES # (AUTO) 0.5 K/uL (0.1-1.30); NEUTROPHILS # (AUTO) 3.9 K/uL (1.8-8.9); NEUTROPHILS % (AUTO) 60.3 % (43.0-81.0); PLATELET COUNT (AUTO) 147 K/uL (150-450); RED BLOOD CELL COUNT(AUTO) 4.29 MIL/uL (4.5-6.0); WHITE BLOOD COUNT (AUTO) 6.5 K/uL (4.3-11.0)
--- NOTE | 2021-02-11 06:50 | NUR ---
coach professional athletes closing notes Pt is resting in bed comfortably. Pt is alert and orientedX3. Pt speaks Indonesian and able to make needs known. Respiration is normal in 5 L NC. No SOB. No S/S of distress noted. tele monitor showed SR hr at 89. IV sites at R wrist # 22 is clean, intact and SL. Pt is NPO. Kept Pt clean, dry and comfortable. Safety precautions is maintained. Bed at low position, brakes locked, side rails upX3 and call light is within reach. Will endorse to am nurse for ALYSSA.
[2021-02-11] MEDS ORDERED: ANESTHESIA TRAY IN PYXIS 1 EA TRAY MC ONE (06:54)
[2021-02-11] MEDS ORDERED: BUPIVACAINE MPF 0.5% W/EPI INJ 30 ML VIAL ONE (06:54)
[2021-02-11] MEDS ORDERED: BUPIVACAINE 0.5 % PF 150 MG/30 ML VIAL ONE (06:54)
[2021-02-11] MEDS ORDERED: MIDAZOLAM HCL 2 MG/2ML VIAL ONE (06:55)
[2021-02-11] MEDS ORDERED: FAMOTIDINE/PF INJ 20 MG/2 ML VIAL IV ONE (06:55)
[2021-02-11] MEDS ORDERED: FENTANYL PF 250MCG/5ML AMPUL ONE (06:55)
--- NOTE | 2021-02-11 07:10 | NUR ---
reading professor notes Pt is going for procedure accompanied by two OR tech. Will endorse to am nurse.
[2021-02-11 07:11] LABS: CALCIUM, SERUM 7.9 mg/dL (8.5-10.1); CREATININE 1.4 mg/dL (0.6-1.3); MAGNESIUM 1.7 mg/dL (1.8-2.4); PHOSPHORUS 4.9 mg/dL (2.5-4.9); POTASSIUM 5.4 mmol/L (3.5-5.1)
[2021-02-11] MEDS ORDERED: BACITRACIN ZINC OINT PACKET 1 EA PACKET TP ONE (07:55)
[2021-02-11] MEDS: CARVEDILOL 6.25 MG TABLET PO SCH ×2 (09:00→16:35)
[2021-02-11] MEDS: Z GUARD REMEDY 2 OZ OINT TP SCH (09:00)
[2021-02-11] MEDS: POTASSIUM CHLORIDE 20 MEQ TAB.PRT.SR PO SCH (09:00)
--- NOTE | 2021-02-11 09:30 | NUR ---
MARINA MANAGER NOTE PATIENT RECEIVED FROM OR AROUND 0915H ACCOMPANIED BY 2 NURSES. PATIENT'S BP WNL 99/77, 104, 98%, 97.3, PATIENT ON O2 AT 5LPM VIA NASAL CANULA. PATIENT CAME BACK FROM OR S/P LEFT LOWER LEG WOUND DEBRIDEMENT WITH WOUND COVERED WITH ELASTIC BANDAGE. PATIENT APPEARS DROWSY BUT UPON FURTHER ASSESSMENT, PATIENT DOESN'T SEEM TO RESPOND TO ANY STIMULUS ELICITED. BY THIS TIME, NURSE KEVIN HAD ALREADY LEFT THE UNIT SO I CALLED HER BACK AND SHE SAID PATIENT OPENS EYES TO CALL IF YOU TALK TO HIM IN [place], WHICH I DID BUT WAS NOT GETTING ANY RESPONSE. I CALLED THE ATTENTION OF MY CHARGE NURSE FOR FURTHER ASSESSMENT AND SHE GOT NO RESPONSE TO PAINFUL STIMULI. PATIENT APPEARS STILL ON DEEP ANESTHESIA. OR NURSE KEVIN NOTIFIED AND SAID SHE WILL SEND THE ANESTHESIOLOGIST. WILL CONTINUE TO MONITOR, WITH NURSE AT BEDSIDE.
[2021-02-11] MEDS ORDERED: NALOXONE HCL 0.4 MG/ML AMPUL IV STA (09:49)
--- NOTE | 2021-02-11 10:00 | NUR ---
PROMOTION MANAGER NOTE ANESTHESIOLOGIST CAME AND ASSESSED THE PATIENT WITH THE SAME RESULT. MD ORDERED NARCAN IV. MEDICATION GIVEN AND PATIENT STARTED REACTION TO STUMULUS SOON 2 MINUTES AFTER ADMINISTRATION. WILL CONTINUE TO MONITOR PATIENT.
[2021-02-11] MEDS: Magnesium 1GM/D5W 100ML PREMIX 100 ML IV SCH ×2 (11:00→12:00)
[2021-02-11] MEDS: FUROSEMIDE 40 MG/4 ML VIAL IV SCH (12:08)
--- NOTE | 2021-02-11 17:00 | NUR ---
DIDACTIC INSTRUCTOR NOTE PATIENT WITH ORDER TO JOANNE GUIDED. THORACENTHESIS. VERIFIED TH [facility] TECH BRITTANEY AND SAID IT WILL BE DONE TOMORROW AND NOT TODAY AND THAT THERE IS NO NEED TO KEEP PATIENT ON NPO. WILL CONTINUE TO MONITOR PATIENT.
--- NOTE | 2021-02-11 19:50 | NUR ---
NUCLEAR CONTROL OPERATOR OPENING NOTE PATIENT RESTING IN BED, ALERT/ORIENTED X 4, PRIMARILY KITTITIAN SPEAKING, ABLE TO MAKE NEEDS KNOWN. PATIENT STABLE ON 5 L OF OXYGEN VIA NC, NO S/S OF DISTRESS OR SOB NOTED, BREATHING EVEN AND UNLABORED. PATIENT ON EXTERNAL CARDIAC MONITORING READING SINUS RHYTHM, HR: 91. LEFT LEG DRESSING CLEAN, DRY AND INTACT. IV ACCESS ON RIGHT WRIST #22G AND LEFT AC #18G INTACT AND SALINE LOCKED. SAFETY MEASURES IN PLACE: CALL LIGHT AND TABLE WITHIN REACH, SIDE RAILS UP X 3, HOB ELEVATED, SIDE RAILS UP X 2, BED LOCKED IN LOW POSITION, BED ALARM ON. WILL CONTINUE TO MONITOR PATIENT
[2021-02-11] MEDS: MAG HYDROX/AL HYDROX/SIMETH 30 ML UDC PO PRN (20:00)
[2021-02-11] MEDS: ACETAMINOPHEN 325 MG TABLET PO PRN (21:25)
--- NOTE | 2021-02-11 21:30 | NUR ---
SPECIMEN TECHNICIAN NOTE PT COMPLAINING OF ABDOMINAL PAIN, TYLENOL 650 MG PO GIVEN ORDERED. WILL CONTINUE TO MONITOR PATIENT
[2021-02-12] VITALS: BP 81/56
[2021-02-12 04:00] VITALS: BP 65/48
[2021-02-12 04:30] VITALS: BP 95/63
[2021-02-12 06:31] LABS: BASOPHILS % (AUTO) 0.3 % (0.0-2.0); HEMATOCRIT 39 % (39-51); HEMOGLOBIN 12.9 g/dL (13.5-17.5); LYMPHOCYTES # (AUTO) 1.4 K/uL (0.8-4.8); LYMPHOCYTES % (AUTO) 13.3 % (20.0-44.0); MEAN CORPUSCULAR HGB CONC 33 g/dl (31.0-36.0); MEAN CORPUSCULAR VOLUME 101 fL (80-96); MONOCYTES # (AUTO) 0.5 K/uL (0.1-1.30); NEUTROPHILS # (AUTO) 8.4 K/uL (1.8-8.9); NEUTROPHILS % (AUTO) 81.4 % (43.0-81.0); PLATELET COUNT (AUTO) 123 K/uL (150-450); RED BLOOD CELL COUNT(AUTO) 3.82 MIL/uL (4.5-6.0); WHITE BLOOD COUNT (AUTO) 10.3 K/uL (4.3-11.0)
[2021-02-12 06:53] LABS: CALCIUM, SERUM 7.8 mg/dL (8.5-10.1); CREATININE 1.9 mg/dL (0.6-1.3); MAGNESIUM 1.9 mg/dL (1.8-2.4); PHOSPHORUS 5.2 mg/dL (2.5-4.9); POTASSIUM 5.2 mmol/L (3.5-5.1)
[2021-02-12 07:07] LABS: THYROID STIMULATING HORMONE 3.126 uIU/mL (0.358-3.74)
--- NOTE | 2021-02-12 07:12 | NUR ---
ELECTRONIC SYSTEM ENGINEER OPENING NOTES RECEIVED PATIENT IN BED AWAKE, ALERT/ORIENTED X 4. NOT IN ANY DISTRESS, DENIES PAIN AND DISCOMFORT AT THIS TIME. PATIENT IS ON ROOM AIR WITH EQUAL AND UNLABORED BREATHING. WITH LEFT FOREARM G20 ON SALINE LOCK. PATIENT FOR CTA ORDERED. AWAITING PROCEDURE. SAFETY MNEASURES ENSURED WITH BED AT LOWEST LOCKED POSITION, SIDERAILS RAISED. CALL LIGHT AND TABLE WITHIN REACH. WILL CONTINUE TO MONITOR PATIENT.
[2021-02-12 08:00] VITALS: BP 88/65
[2021-02-12] MEDS: CARVEDILOL 6.25 MG TABLET PO SCH ×2 (09:00→17:07)
[2021-02-12] MEDS: POTASSIUM CHLORIDE 20 MEQ TAB.PRT.SR PO SCH (09:00)
[2021-02-12] MEDS: Z GUARD REMEDY 2 OZ OINT TP SCH (09:00)
--- NOTE | 2021-02-12 09:45 | NUR ---
PHOTOLITHOGRAPHER NOTE POTASSIUM NOT GIVEN AT THIS TIME. LATEST K LEVEL IS 5.2. WILL NOTIFY
--- NOTE | 2021-02-12 09:54 | NUR ---
BLOWING WEASAND NOTE PRN Z GUARD APPLIED. WON'T SCAN
--- NOTE | 2021-02-12 09:58 | NUR ---
INFORMED RN NAIDA PATIENTS INR IS ELEVATED , MUST BE 1.5 OR BELOW. THORACENETSIS ON HOLD UNTIL INR IS CORRECTED
[2021-02-12] MEDS ORDERED: IOHEXOL-350 100 ML VIAL IV ONE ×2 (13:44→14:01)
[2021-02-12] MEDS ORDERED: IV NS 0.9% 250 ML IV ONE (13:44)
[2021-02-12] MEDS ORDERED: CT SWABBABLE VALVE TRANS SET 1 EA INFUS.SET MC ONE (13:44)
--- NOTE | 2021-02-12 14:30 | NUR ---
STRIP POLISHER NOTE PATIENT BACK FROM CT OF THE ABDOMEN. IN STABLE CONDITION. WILL CONTINUE TO MONITOR PATIENT.
[2021-02-12 16:00] VITALS: BP 87/64
[2021-02-12] MEDS ORDERED: IV NS 0.9% 500 ML IV ONE (16:00)
--- NOTE | 2021-02-12 18:49 | NUR ---
VEHICLE BODY BUILDER CLOSING NOTES PATIENT IN BED AWAKE, ALERT/ORIENTED X 4. NOT IN ANY DISTRESS, DENIES PAIN AND DISCOMFORT AT THIS TIME. PATIENT IS ON ROOM AIR WITH EQUAL AND UNLABORED BREATHING. WITH LEFT FOREARM G20 ON SALINE LOCK. PATIENT FOR CTA ORDERED. AWAITING PROCEDURE. SAFETY MNEASURES ENSURED WITH BED AT LOWEST LOCKED POSITION, SIDERAILS RAISED. CALL LIGHT AND TABLE WITHIN REACH. WILL ENDORSE PATIENT FOR CONTINUITY OF CARE.
--- NOTE | 2021-02-12 19:40 | NUR ---
INCOME TAX MANAGER OPENING NOTE PATIENT AWAKE SITTING ON SIDE OF BED, ALERT/ORIENTED X 4, PT ABLE TO MAKE NEEDS KNOWN. PATIENT SPEAKS PRIMARILY MACEDONIAN. PT STABLE ON RA, NO S/S OF DISTRESS OR SOB NOTED, BREATHING EVEN AND UNLABORED, SPO2 96%. PT ON EXTERNAL IT AUDITOR READING SINUS RHYTHM, HR: 97. LEFT AC #18G IV ACCESS INTACT AND RUNNING NS @ 75 ML/HR (450 ML ONLY). SAFETY MEASURES IN PLACE: CALL LIGHT AND TABLE WITHIN REACH, BED LOCKED IN LOW POSITION, SIDE RAILS UP X 2, HOB ELEVATED, BED ALARM ON. WILL CONTINUE TO MONITOR PATIENT
[2021-02-12 20:03] VITALS: BP 105/72
[2021-02-12 20:59] LABS: BILIRUBIN,URINE SMALL (NEGATIVE); COLOR,URINE DARK YELLOW (YELLOW); LEUKOCYTE ESTERASE ,URINE NEGATIVE (NEGATIVE); NITRITE, URINE NEGATIVE (NEGATIVE); PH,URINE 5.5 (5.0-8.0); PROTEIN,URINE NEGATIVE (NEGATIVE); UGLUCOSE NEGATIVE (NEGATIVE)
[2021-02-12 21:11] LABS: BACTERIA,URINE None seen /HPF (None Seen); RBC,URINE 0-2 /HPF (0-2); SQUAMOUS EPITHELIAL CELL,UR Few /HPF (None Seen); WBC,URINE 0-2 /HPF (0-3)
[2021-02-13 00:30] VITALS: BP 111/75
[2021-02-13] MEDS: MAG HYDROX/AL HYDROX/SIMETH 30 ML UDC PO PRN (04:39)
[2021-02-13 04:42] VITALS: BP 99/72
[2021-02-13 06:46] LABS: BASOPHILS # (AUTO) 0.1 K/uL (0.0-0.2); BASOPHILS % (AUTO) 1.1 % (0.0-2.0); HEMATOCRIT 36 % (39-51); HEMOGLOBIN 12.4 g/dL (13.5-17.5); LYMPHOCYTES # (AUTO) 1.1 K/uL (0.8-4.8); LYMPHOCYTES % (AUTO) 13.3 % (20.0-44.0); MEAN CORPUSCULAR HGB CONC 34 g/dl (31.0-36.0); MEAN CORPUSCULAR VOLUME 100 fL (80-96); MONOCYTES # (AUTO) 0.6 K/uL (0.1-1.30); NEUTROPHILS # (AUTO) 6.2 K/uL (1.8-8.9); NEUTROPHILS % (AUTO) 78.6 % (43.0-81.0); PLATELET COUNT (AUTO) 115 K/uL (150-450); RED BLOOD CELL COUNT(AUTO) 3.62 MIL/uL (4.5-6.0); WHITE BLOOD COUNT (AUTO) 7.9 K/uL (4.3-11.0)
--- NOTE | 2021-02-13 07:29 | NUR ---
ACCESS MANAGER CLOSING NOTES PATIENT AWAKE IN BED, ALERT/ORIENTED X 4. PT STABLE ON RA, NO S/S OF DISTRESS OR SOB NOTED, BREATHING EVEN AND UNLABORED. NO SIGNIFICANT CHANGES THROUGHOUT SHIFT. MEDICATIONS GIVEN ORDERED, PT NEEDS MET THROUGHOUT SHIFT. SAFETY MEASURES IN PLACE: CALL LIGHT AND TABLE WITHIN REACH, BED LOCKED IN LOW POSITION, BED ALARM ON. ENDORSED TO DAY SHIFT NURSE FOR CONTINUITY OF CARE
--- NOTE | 2021-02-13 07:30 | NUR ---
IMPRESS ASSOCIATE OPENING NOTE RECEIVED PATIENT AWAKE SITTING ON SIDE OF BED, ALERT/ORIENTED X 4, PT ABLE TO MAKE NEEDS KNOWN IN GEORGIAN LANGUAGE. PATIENT SPEAKS PRIMARILY NORWEGIAN. PT STABLE ON RA, NO S/S OF DISTRESS OR SOB NOTED, BREATHING EVEN AND UNLABORED, SPO2 98%. PT ON EXTERNAL POLISHER EYEGLASS FRAMES READING SINUS RHYTHM, HR: 96. LEFT AC # 20 G IV ACCESS INTACT AND PATENT. SAFETY MEASURES IN PLACE: CALL LIGHT AND TABLE WITHIN REACH, BED LOCKED IN LOW POSITION, SIDE RAILS UP X 2, HOB ELEVATED, BED ALARM ON. WILL CONTINUE TO MONITOR PATIENT
[2021-02-13 07:42] LABS: ALBUMIN 1.9 g/dL (3.4-5.0); BILIRUBIN,TOTAL 1.7 mg/dL (0.2-1.0); CALCIUM, SERUM 7.6 mg/dL (8.5-10.1); CREATININE 1.4 mg/dL (0.6-1.3); MAGNESIUM 1.9 mg/dL (1.8-2.4); PHOSPHORUS 2.8 mg/dL (2.5-4.9); TOTAL PROTEIN, SERUM 6.1 g/dL (6.4-8.2)
--- NOTE | 2021-02-13 07:51 | NUR ---
SPOKE TO RNAKBAR AT 7:45. SHE WILL START TRANSFUSION WHEN THE AVAILABILITY OF RADIOLOGIST IS CONFIRMED. WILL CONFIRM THE TIME OF PROCEDURE WHEN RADIOLOGIST COMES IN AND WILL INFORM RN.
[2021-02-13 08:21] VITALS: BP 90/60
[2021-02-13] MEDS: CARVEDILOL 6.25 MG TABLET PO SCH (08:21)
[2021-02-13] MEDS: Z GUARD REMEDY 2 OZ OINT TP SCH (08:24)
[2021-02-13] MEDS ORDERED: THERAHONEY GEL 1.5 OZ TUBE TP SCH (09:00)
--- NOTE | 2021-02-13 09:07 | NUR ---
RN NOTES PATIENT IS REFUSING THORACENTESIS AND FFP TRANSFUSION AT THIS TIME. VERBALIZED HE WANTS TO GO HOME AGAINST MEDICAL ADVISE. RISK EXPLAINED YET PATIENT IS STILL VERY ADAMANT TO LEAVE. [employer] ADVISOR CALLED (HUNGARIAN SPEAKER) EXPLAINED RISK. PER SHE WILL TALK TO HER . DR. SULTANA MADE AWARE. WILL CONTINUE TO MONITOR
--- NOTE | 2021-02-13 09:46 | NUR ---
PER RN ALL EXAMS AND PROCEDURES CANCELLED DUE TO AMA, PT LEFT
--- NOTE | 2021-02-13 09:48 | NUR ---
RN NOTES PATIENT LEFT AMA. RISK EXPLAINED IN [place] C/O FOREIGN LAW CONSULTANT, PATIENT VERY ADAMANT TO LEAVE. PATIENT SIGNED AMA FORM, BELONGINGS LIST, IV ACCESS REMOVED. MD AND CHARGE NURSE AWARE OF AMA.
== END 2021-02-13 09:45 | disposition left against medical advice (07) | DRG 951 ==
LOC: ER 21:33 → TELE 02-10 01:09
PROVIDERS: ADMIT Nurse Practitioner Acute Care
PROC: 0KBT0ZZ Excision of Left Lower Leg Muscle, Open Approach (ICD-10-PCS; principal; 2021-02-11)
DX: I11.0 Hypertensive heart disease with heart failure (principal); D68.59 Other primary thrombophilia; I42.9 Cardiomyopathy, unspecified; E44.1 Mild protein-calorie malnutrition; N17.9 Acute kidney failure, unspecified; I87.312 Chronic venous hypertension (idiopathic) with ulcer of left lower extremity; E87.1 Hypo-osmolality and hyponatremia; J90 Pleural effusion, not elsewhere classified; E11.9 Type 2 diabetes mellitus without complications; I50.43 Acute on chronic combined systolic (congestive) and diastolic (congestive) heart failure; E87.6 Hypokalemia; E78.5 Hyperlipidemia, unspecified; I25.10 Atherosclerotic heart disease of native coronary artery without angina pectoris; Z98.61 Coronary angioplasty status; Z79.82 Long term (current) use of aspirin; Z79.51 Long term (current) use of inhaled steroids; Z79.84 Long term (current) use of oral hypoglycemic drugs; Z79.899 Other long term (current) drug therapy; Z20.822 Contact with and (suspected) exposure to COVID-19; R74.01 Elevation of levels of liver transaminase levels; D75.89 Other specified diseases of blood and blood-forming organs; L97.929 Non-pressure chronic ulcer of unspecified part of left lower leg with unspecified severity; F17.200 Nicotine dependence, unspecified, uncomplicated; I87.8 Other specified disorders of veins; Z79.01 Long term (current) use of anticoagulants; E87.5 Hyperkalemia; E80.6 Other disorders of bilirubin metabolism; L97.925 Non-pressure chronic ulcer of unspecified part of left lower leg with muscle involvement without evidence of necrosis
CPT/HCPCS: 36415; 71045-TC; 76770-TC; 80048-TC; 80053-TC; 80061-TC; 80076-TC; 81001; 82962-TC; 83735-TC; 83880; 84100-TC; 84132-TC; 84443-TC; 84484-TC; 85025-TC; 85610-TC; 85730-TC; 86850-TC; 87070-TC; 87081-TC; 87186-TC; 97116-TC; 97530-TC; A6253; C9803; G0378; J0690; J1885; J1940; J2250; J2310; J2704; J2765; J3010; J3475; J3490; J7030; J7040; J7050; Q9967

== ENCOUNTER 2021-03-11 21:40 | Inpatient (IN) | payer OTHER ==
[~2021-03-11] VITALS: Ht 182.9 cm; Wt 72.6 kg
[~2021-03-11 21:40] MED LIST changes: -CEPH500C2 PO; -SULF1TAB48 PO; -ZOLP5TAB2 PO; +ZOLP5TAB8 PO
--- NOTE | 2021-03-11 21:53 | NUR ---
PT BIBS C/O MIDEPIGASTRIC PAIN AND VOMITING BRIGHT RED BLOOD. PT AAOX2 BREATHING EVENLY AND UNLABORED. PT ATTACHED TO MONITOR AND POX. PT GIVEN BLANKET AND CALL LIGHT WITHIN REACH.
--- NOTE | 2021-03-11 22:10 | NUR ---
, [place] [phone]
[2021-03-11 22:55] LABS: BASOPHILS # (AUTO) 0.1 K/uL (0.0-0.2); BASOPHILS % (AUTO) 0.6 % (0.0-2.0); EOSINOPHILS % (AUTO) 0.1 % (0.0-6.0); HEMATOCRIT 42 % (39-51); HEMOGLOBIN 13.6 g/dL (13.5-17.5); LYMPHOCYTES # (AUTO) 0.7 K/uL (0.8-4.8); LYMPHOCYTES % (AUTO) 7.3 % (20.0-44.0); MEAN CORPUSCULAR HGB CONC 33 g/dl (31.0-36.0); MEAN CORPUSCULAR VOLUME 95 fL (80-96); MONOCYTES # (AUTO) 0.6 K/uL (0.1-1.30); MONOCYTES % (AUTO) 5.8 % (2.0-12.0); NEUTROPHILS # (AUTO) 8.2 K/uL (1.8-8.9); NEUTROPHILS % (AUTO) 86.2 % (43.0-81.0); PLATELET COUNT (AUTO) 319 K/uL (150-450); RED BLOOD CELL COUNT(AUTO) 4.36 MIL/uL (4.5-6.0); WHITE BLOOD COUNT (AUTO) 9.5 K/uL (4.3-11.0)
[2021-03-11 23:09] LABS: CALCIUM, SERUM 8.6 mg/dL (8.5-10.1); CREATININE 0.6 mg/dL (0.6-1.3)
[2021-03-11 23:18] LABS: BILIRUBIN,DIRECT 1.7 mg/dL (0.0-0.2); BILIRUBIN,TOTAL 3.5 mg/dL (0.2-1.0); TOTAL PROTEIN, SERUM 7.4 g/dL (6.4-8.2)
--- NOTE | 2021-03-11 23:19 | NUR ---
PT ON 02 THERAPY VIA NC AT 2L/MIN. O2 SAT 96%, WILL CONTINUE TO MONITOR.
[2021-03-11 23:25] LABS: ALCOHOL, BLOOD < 3 mg/dL (0-0)
[2021-03-11 23:32] LABS: ALBUMIN 3.1 g/dL (3.4-5.0)
[2021-03-11] MEDS ORDERED: CT SWABBABLE VALVE TRANS SET 1 EA INFUS.SET MC ONE (23:53)
[2021-03-11] MEDS ORDERED: IOHEXOL-300 100 ML VIAL IV ONE (23:53)
[2021-03-11] MEDS ORDERED: IV NS 0.9% 250 ML IV ONE (23:53)
--- NOTE | 2021-03-11 23:55 | NUR ---
xray at bedside
--- NOTE | 2021-03-11 23:58 | NUR ---
LAB AT BEDSIDE
[2021-03-12] MEDS ORDERED: LIDOCAINE VISCOUS 2% UD 15 ML UDC ONE
[2021-03-12 00:01] LABS: BASOPHILS % (AUTO) 0.3 % (0.0-2.0); HEMATOCRIT 40 % (39-51); HEMOGLOBIN 13.2 g/dL (13.5-17.5); LYMPHOCYTES # (AUTO) 0.9 K/uL (0.8-4.8); LYMPHOCYTES % (AUTO) 9.1 % (20.0-44.0); MEAN CORPUSCULAR HGB CONC 33 g/dl (31.0-36.0); MEAN CORPUSCULAR VOLUME 95 fL (80-96); MONOCYTES # (AUTO) 0.7 K/uL (0.1-1.30); NEUTROPHILS % (AUTO) 83.6 % (43.0-81.0); PLATELET COUNT (AUTO) 319 K/uL (150-450); RED BLOOD CELL COUNT(AUTO) 4.23 MIL/uL (4.5-6.0); WHITE BLOOD COUNT (AUTO) 9.5 K/uL (4.3-11.0)
--- NOTE | 2021-03-12 00:14 | NUR ---
TAKEN TO CT
[2021-03-12] MEDS ORDERED: OCTREOTIDE 100 MCG/ML VIAL ONE ×2 (00:18→00:25)
[2021-03-12] MEDS ORDERED: PANTOPRAZOLE 40 MG VIAL ONE (00:18)
[2021-03-12] MEDS ORDERED: OCTREOTIDE 500 MCG/ML VIAL ONE (00:18)
[2021-03-12] MEDS ORDERED: PANTOPRAZOLE 80 MG in IV NS 0.9% 100 ML IV ONE (00:30)
[2021-03-12] MEDS ORDERED: OCTREOTIDE 50 MCG/ML AMPUL IV ONE (00:30)
[2021-03-12] MEDS ORDERED: PANTOPRAZOLE 80 MG in IV NS 0.9% 500 ML IV ONE (00:30)
[2021-03-12] MEDS ORDERED: OCTREOTIDE 1,250 MCG in IV NS 0.9% 250 ML IV ONE (00:30)
--- NOTE | 2021-03-12 00:30 | NUR ---
NG TUBE PLACED 65 AT NARES WITH POSITIVE GASTRIC OUTPUT. PT TOLERATED WELL.
--- NOTE | 2021-03-12 00:44 | NUR ---
CALLED DR. BASSETT. NO ANSWER. UNABLE TO PAGE OR LEAVE A MESSAGE
[2021-03-12] MEDS ORDERED: CEFTRIAXONE 1GM BAG (ER ONLY) 50 ML IV ONE (00:49)
[2021-03-12] MEDS ORDERED: CEFTRIAXONE 1 G in IV D5W 50 ML IV ONE (01:00)
--- NOTE | 2021-03-12 01:05 | NUR ---
ATTEMTED TO CALL DR BASSETT AGAIN. UNABLE TO PAGE OR LEAVE A MESSAGE
[2021-03-12] MEDS ORDERED: FUROSEMIDE 20 MG/2 ML VIAL ONE (01:14)
[2021-03-12] MEDS ORDERED: POTASSIUM CL. PREMIX PERIPHER. 100 ML ONE (01:14)
[2021-03-12] MEDS: POTASSIUM CL. PREMIX PERIPHER. 50 ML IV SCH ×2 (01:25→02:30)
[2021-03-12] MEDS ORDERED: ACETAMINOPHEN 325 MG TABLET PO PRN (01:30)
[2021-03-12] MEDS ORDERED: MAGNESIUM HYDROXIDE 30 ML UDC PO PRN (01:30)
[2021-03-12] MEDS ORDERED: ONDANSETRON HCL/PF 4 MG/2 ML VIAL IVP PRN (01:30)
[2021-03-12] MEDS ORDERED: HYDROCODONE/APAP 5/325MG TABLET PO PRN (01:30)
[2021-03-12] MEDS ORDERED: FUROSEMIDE 20 MG/2 ML VIAL IV ONE (01:30)
[2021-03-12] MEDS ORDERED: OCTREOTIDE 500 MCG in IV NS 0.9% 99 ML IV PRN (01:30)
[2021-03-12] MEDS ORDERED: MAG HYDROX/AL HYDROX/SIMETH 30 ML UDC PO PRN (01:30)
[2021-03-12] MEDS ORDERED: ZOLPIDEM TARTRATE 5 MG TABLET PO PRN ×2 (01:30)
[2021-03-12] MEDS: CEFTRIAXONE 1 G in IV D5W 50 ML IV SCH ×2 (01:30→22:09)
[2021-03-12] MEDS ORDERED: Z GUARD REMEDY 2 OZ OINT TP PRN (01:30)
--- NOTE | 2021-03-12 01:55 | NUR ---
LASHAY HELD D/T BP 97/67, AWARE
--- NOTE | 2021-03-12 02:03 | NUR ---
RN NOTE REPORT RECEIVED BY LIANA OATES FOR ALYSSA.
--- NOTE | 2021-03-12 02:03 | NUR ---
REPORT GIVEN TO GAIL AT [facility]
[2021-03-12 02:50] VITALS: BP 97/61
--- NOTE | 2021-03-12 02:50 | NUR ---
RN NOTE PT BROUGHT TO UNIT VIA GURNEY. PT IS CURRENTLY ON SECOND BAG OF POTASSIUM AT 50ML/HR AND ON PROTONIX VIA IV AT 52ML/HR. SANDOSTATIN PREPARED BY ER NURSE AND WILL BEGIN WHEN POTASSIUM FINISHES. PT IS ON 2L OF O2 VIA NC SHOWING NO S/S OF RESP DISTRESS. BREATHING EVEN AND UNLABORED. PT IS ALERT AND ORIENTED X2-3. ON GROUND CONTROL APPROACH TECHNICIAN SHOWING NSR. LEFT LOWER LEG WOUND NOTED. CURRENTLY NPO. NG TUBE NOTED. IV ACCESS ON LEFT AC #18 AND RIGHT FA #20 NOTED. LINES FLUSHED, PATENT, AND INTACT WITH NO SIGNS OF INFILTRATION. ALL SAFETY MEASURES IMPLEMENTED. CALL LIGHT WITHIN REACH. BED ALARM ON. BED LOCKED AND IN LOWEST POSITION. WILL CONTINUE TO MONITOR AND ASSESS FOR ANY CHANGES DURING SHIFT.
[2021-03-12] MEDS ORDERED: HYDROMORPHONE 1 MG/1 ML DISP.SYRIN IV PRN (03:30)
--- NOTE | 2021-03-12 03:56 | NUR ---
RN NOTE PER LEBRON AT [facility] TO ADMINISTER IV PROTONIX AND SANDOSTATIN IN 2 SEPARATE IV LINES.
--- NOTE | 2021-03-12 06:41 | NUR ---
RN NOTE NO CHANGES IN PT CONDITION DURING SHIFT. PT IS ON 2L OF O2 VIA NC SHOWING NO S/S OF RESP DISTRESS. BREATHING EVEN AND UNLABORED. CURRENTLY NPO. NG TUBE NOTED. IV ACCESS ON LEFT AC #18 AND RIGHT FA #20 NOTED. LINES FLUSHED, PATENT, AND INTACT WITH NO SIGNS OF INFILTRATION. ALL DUE MEDS GIVEN ORDERED. PT KEPT CLEAN AND COMFORTABLE. ALL SAFETY MEASURES IMPLEMENTED. CALL LIGHT WITHIN REACH. BED ALARM ON. BED LOCKED AND IN LOWEST POSITION. WILL ENDORSE TO MORNING SHIFT RN FOR ALYSSA.
[2021-03-12] MEDS ORDERED: BUMETANIDE INJ 0.25 MG/ML VIAL IV ONE (07:00)
[2021-03-12] MEDS: IPRATROPIUM NEB FS 0.5 MG/2.5 ML AMPUL.NEB NEB SCH ×2 (07:05→15:00)
--- NOTE | 2021-03-12 07:33 | NUR ---
RN OPEN NOTE RECEIVED PT RESTING IN BED, ON 2L VIA NC O2 SAT 95 % SHOWING NO S/S OF RESP DISTRESS OR SOB BREATHING EVEN AND UNLABORED. CURRENTLY NPO. NG TUBE NOTED ON LOW INTERMITTENT SUCTION IV ACCESS ON LEFT AC #18 AND RIGHT FA #20 NOTED. LINES FLUSHED, PATENT, AND INTACT WITH NO SIGNS OF INFILTRATION. NO COMPLAIN OF PAIN AT THIS TIME, ALL SAFETY MEASURES IMPLEMENTED. CALL LIGHT WITHIN REACH. BED ALARM ON. BED LOCKED AND IN LOWEST POSITION. WILL CONTINUE TO MONITOR
[2021-03-12 08:00] VITALS: BP 104/77
[2021-03-12] MEDS: FERROUS SULFATE (325 MG) 325 MG/TAB TABLET PO SCH (08:25)
[2021-03-12] MEDS: CARVEDILOL 6.25 MG TABLET PO SCH ×2 (08:25→16:46)
[2021-03-12] MEDS ORDERED: ATROVENT INH SCH (09:00)
[2021-03-12] MEDS ORDERED: MIDODRINE HCL (5MG) 5 MG TABLET PO PRN (09:00)
--- NOTE | 2021-03-12 09:26 | NUR ---
WOUND CARE CONSULT: PT RESTING AT THIS TIME. ADMISSION PHOTOS INDICATE ULCER TO LEFT LOWER LEG, PRESENT ON ADMISSION. DR DEUTSCH NOTIFED OF DPM CONSULT REQUEST. IN AGREEMENT WITH PLAN OF CARE.
[2021-03-12] MEDS: PANTOPRAZOLE 40 MG VIAL IV SCH ×2 (09:27→16:49)
[2021-03-12] MEDS: FUROSEMIDE 40 MG TABLET PO SCH (09:30)
[2021-03-12] MEDS: SPIRONOLACTONE 25 MG TABLET PO SCH ×2 (09:30→16:46)
[2021-03-12] MEDS ORDERED: DEXTROSE 50%-WATER 50 ML DISP.SYRIN IV PRN (09:30)
[2021-03-12] MEDS ORDERED: INSULIN REGULAR, HUMAN 100 UNIT/ML 3 ML VIAL SQ PRN (09:30)
[2021-03-12] MEDS: POTASSIUM CHLORIDE 20 MEQ TAB.PRT.SR PO SCH ×2 (09:30→16:46)
--- NOTE | 2021-03-12 09:30 | NUR ---
rn note per doctor dc ng tube
[2021-03-12] MEDS ORDERED: DIGO125T PO (09:48)
[2021-03-12] MEDS ORDERED: BUME2TAB7 PO (09:48)
--- NOTE | 2021-03-12 10:00 | NUR ---
RN NOTE PER ST KEEP PT NPO UNABLE TO SWALLOW PILLS OR FOOD
--- NOTE | 2021-03-12 11:02 | NUR ---
RN NOTE THORACENTESIS AND PARACENTESIS CONSENT OBTAINED
[2021-03-12 11:07] LABS: HEMOGLOBIN 13.5 g/dL (13.5-17.5)
[2021-03-12 11:24] LABS: CALCIUM, SERUM 8.6 mg/dL (8.5-10.1); CREATININE 0.7 mg/dL (0.6-1.3); POTASSIUM 3.4 mmol/L (3.5-5.1)
[2021-03-12 11:33] LABS: ALBUMIN 2.8 g/dL (3.4-5.0); BILIRUBIN,TOTAL 3.3 mg/dL (0.2-1.0); PHOSPHORUS 4.4 mg/dL (2.5-4.9); TOTAL PROTEIN, SERUM 6.6 g/dL (6.4-8.2)
[2021-03-12 12:00] VITALS: BP 84/62
[2021-03-12] MEDS ORDERED: IV NS 0.9% 1,000 ML IV ONE (12:00)
--- NOTE | 2021-03-12 12:00 | NUR ---
RN NOTE NS 1L BOLUS STARTED PER DOCTOR, BLOOD PRESSURE POST THORACENTESES AND PARACENTESIS 84/62 WILL KEEP MONITORING
[2021-03-12] MEDS: BLOOD SUGAR DIAGNOSTIC 1 EACH STRIP IN SCH ×3 (12:31→22:40)
--- NOTE | 2021-03-12 13:19 | NUR ---
RN NOTE BOLUS NS 1000 ML INFUSED. BLOOD PRESSURE 98/69 WILL CONTINUE TO MONITOR
--- NOTE | 2021-03-12 14:32 | NUR ---
RN NOTE ROUND MADE PT IS STABLE BLOOD PRESSURE 95/67 WILL CONTINUE TO MONITOR
--- NOTE | 2021-03-12 15:26 | NUR ---
RESP TX DEFERRED. PT RULE OUT. CHARGE NURSE MEGAN INFORMED TO ORDER PCR TEST Addendum: 03/12/21 at 1527 by SANDY PIRES RT Amended: Links added.
[2021-03-12 16:00] VITALS: BP 90/60
[2021-03-12] MEDS ORDERED: FUROSEMIDE 20 MG/2 ML VIAL IV SCH (17:00)
[2021-03-12] MEDS: ATORVASTATIN 10 MG TABLET PO SCH (17:03)
[2021-03-12 18:20] LABS: HEMOGLOBIN 13.4 g/dL (13.5-17.5)
--- NOTE | 2021-03-12 18:32 | NUR ---
RN CLOSING NOTE PT IS RESTING IN BED, ON 2L VIA NC O2 SAT 96 % SHOWING NO S/S OF RESPIRATORY DISTRESS OR SOB, BREATHING EVEN AND UNLABORED. CURRENTLY NPO. IV ACCESS ON LEFT AC #18 AND RIGHT FA #20 RUNNING SANDOSTATIN AT THIS AT THIS TIME . LINES FLUSHED, PATENT, AND INTACT WITH NO SIGNS OF INFILTRATION. NO COMPLAIN OF PAIN AT THIS TIME, PT KEEP COMFORTABLE AND CLEAN, ALL NEEDS MET. SAFETY MEASURES IMPLEMENTED. CALL LIGHT WITHIN REACH. BED ALARM ON. BED LOCKED AND IN LOWEST POSITION. WILL ENDORSE TO [employer] DEPARTMENT MANAGERAPPLIED EXERCISE PHYSIOLOGIST
[2021-03-12 20:00] VITALS: BP 119/66
--- NOTE | 2021-03-12 20:00 | NUR ---
N OPENING NOTES RECEIVED PATIENT ON BED, ALERT, AWAKE AND VERBALLY RESPONSIVE, RESPIRATORY EVEN AND UNLABORED, ON NASAL CANULA @ 2LPM, NO SOB NOTED, DENIES PAIN, NO S/S OF DISTRESS NOTED, REMAIN AFEBRILE. PT. NOTED WITH LEFT AC PERIPHERAL LINE G#18, RFA G#20, PATENT, INTACT AND FLUSH WITH NS, NO INFILTRATION NOTED AT SITE. PT. CURRENTLY ON NPO FOR POSSIBLE PROCEDURE TOMORROW.. BED IN LOWEST POSITION, LOCKED, BED ALARM ARMED. ALL NEEDS ATTENDED. CALL LIGHT WITH IN REACH. WILL MONITOR THROUGH OUT THE SHIFT
[2021-03-13] VITALS (7 sets, daily range): BP systolic 93–121; BP diastolic 62–78
[2021-03-13 01:12] LABS: HEMOGLOBIN 11.9 g/dL (13.5-17.5)
[2021-03-13 06:43] LABS: BASOPHILS % (AUTO) 0.3 % (0.0-2.0); EOSINOPHILS % (AUTO) 0.3 % (0.0-6.0); HEMATOCRIT 37 % (39-51); HEMOGLOBIN 12.3 g/dL (13.5-17.5); LYMPHOCYTES # (AUTO) 1.5 K/uL (0.8-4.8); LYMPHOCYTES % (AUTO) 19.5 % (20.0-44.0); MEAN CORPUSCULAR HGB CONC 33 g/dl (31.0-36.0); MEAN CORPUSCULAR VOLUME 97 fL (80-96); MONOCYTES # (AUTO) 0.8 K/uL (0.1-1.30); MONOCYTES % (AUTO) 10.7 % (2.0-12.0); NEUTROPHILS # (AUTO) 5.3 K/uL (1.8-8.9); NEUTROPHILS % (AUTO) 69.2 % (43.0-81.0); PLATELET COUNT (AUTO) 289 K/uL (150-450); RED BLOOD CELL COUNT(AUTO) 3.83 MIL/uL (4.5-6.0); WHITE BLOOD COUNT (AUTO) 7.6 K/uL (4.3-11.0)
--- NOTE | 2021-03-13 07:18 | NUR ---
RN CLOSING NOTES REMAIN STABLE THROUGH OUT THE SHIFT, RESPIRATORY EVEN AND UNLABORED, ON NASAL CANULA @ 2LPM, NO SOB NOTED, DENIES PAIN, NO S/S OF DISTRESS NOTED, REMAIN AFEBRILE. PT. NOTED WITH LEFT AC PERIPHERAL LINE G#18, RFA G#20, PATENT, INTACT AND FLUSH WITH NS, NO INFILTRATION NOTED AT SITE. PT. REMAIN ON NPO FOR POSSIBLE PROCEDURE TODAY, CONSENT DONE AND PREP OP CHECK LIST. BED IN LOWEST POSITION, LOCKED, BED ALARM ARMED. ALL NEEDS ATTENDED. CALL LIGHT WITH IN REACH. WILL MONITOR THROUGH OUT THE SHIFT
[2021-03-13] MEDS: IPRATROPIUM NEB FS 0.5 MG/2.5 ML AMPUL.NEB NEB SCH ×2 (07:23→15:19)
--- NOTE | 2021-03-13 07:34 | NUR ---
RN OPEN NOTE RECEIVED PT SITTING IN THE CHAIR , ON 2L VIA NC O2 SAT 97 % WITH NO S/S OF RESPIRATORY DISTRESS OR SOB, BREATHING EVEN AND UNLABORED. CURRENTLY NPO FOR PROCEDURE TODAY. IV ACCESS ON LEFT AC #18 AND RIGHT FA #20 LINES FLUSHED, PATENT, AND INTACT WITH NO SIGNS OF INFILTRATION. NO COMPLAIN OF PAIN AT THIS TIME, REQUESTING FOOD OR LIQUIDS, SAFETY MEASURES IMPLEMENTED. CALL LIGHT WITHIN REACH. BED ALARM ON. BED LOCKED AND IN LOWEST POSITION. WILL CONTINUE TO MONITOR
[2021-03-13] MEDS: BLOOD SUGAR DIAGNOSTIC 1 EACH STRIP IN SCH ×4 (07:51→21:49)
--- NOTE | 2021-03-13 08:00 | NUR ---
RN NOTE BLOOD SUGAR 63 D50% IV GIVEN I WILL REASSESS IN 30 MIN
[2021-03-13 08:14] LABS: ALBUMIN 2.9 g/dL (3.4-5.0); BILIRUBIN,TOTAL 3.4 mg/dL (0.2-1.0); CALCIUM, SERUM 8.5 mg/dL (8.5-10.1); CREATININE 0.7 mg/dL (0.6-1.3); MAGNESIUM 2.4 mg/dL (1.8-2.4); PHOSPHORUS 3.4 mg/dL (2.5-4.9); POTASSIUM 3.4 mmol/L (3.5-5.1); TOTAL PROTEIN, SERUM 6.8 g/dL (6.4-8.2)
--- NOTE | 2021-03-13 08:39 | NUR ---
RN NOTE BLOOD SUGAR REASSESS AFTER D50, 121 NOW, PER DOCTOR AND ST IS OK PUREE DIET AFTER EGD WILL KEEP ,MONITORING
[2021-03-13] MEDS: PANTOPRAZOLE 40 MG VIAL IV SCH ×2 (08:48→16:31)
[2021-03-13] MEDS: SPIRONOLACTONE 25 MG TABLET PO SCH ×2 (08:49→16:31)
[2021-03-13] MEDS: CARVEDILOL 6.25 MG TABLET PO SCH ×2 (08:49→16:32)
[2021-03-13] MEDS: FERROUS SULFATE (325 MG) 325 MG/TAB TABLET PO SCH (08:50)
[2021-03-13] MEDS: POTASSIUM CHLORIDE 20 MEQ TAB.PRT.SR PO SCH ×2 (08:50→16:31)
[2021-03-13] MEDS: FUROSEMIDE 40 MG TABLET PO SCH (08:50)
[2021-03-13] MEDS ORDERED: POTASSIUM CHLORIDE 20 MEQ TAB.PRT.SR PO SCH (09:00)
[2021-03-13] MEDS: THERAHONEY GEL 1.5 OZ TUBE TP SCH (09:10)
[2021-03-13 09:32] LABS: HEMOGLOBIN 12.2 g/dL (13.5-17.5)
[2021-03-13] MEDS ORDERED: ANESTHESIA TRAY IN PYXIS 1 EA TRAY MC ONE (10:48)
--- NOTE | 2021-03-13 12:40 | NUR ---
RN NOTE PT WENT UP TO THE OR FOR EGD PROCEDURE IN STABLE CONDITION, BLOOD PRESSURE TAKEN 104/68 HR 86
--- NOTE | 2021-03-13 14:54 | NUR ---
RN NOTE PATIENT BACK FROM EGD PROCEDURE, AWAKE, A/O X 3, VERBALLY RESPONSIVE. DENIES PAIN/DISCOMFORT AT THE TIME. PATIENT IN STABLE CONDITION TEMP: 98.3, HR: 81, RR: 17, O2 SAT: 96%, BP: 100/78. RECEIVED REPORT FROM LIZ GAINES, OKAY TO RESUME PREVIOUS MEDS AND DIET ORDERS. ALL SAFETY MEASURES IN PLACE, BED LOCKED, IN LOWEST POSITION SIDERAILS X 2. CALL LIGHT WITHIN REACH. WILL CONTINUE TO MONITOR.
[2021-03-13] MEDS: ATORVASTATIN 10 MG TABLET PO SCH (17:55)
[2021-03-13 18:22] LABS: HEMOGLOBIN 12.4 g/dL (13.5-17.5)
--- NOTE | 2021-03-13 18:37 | NUR ---
RN CLOSING NOTE PT REMAINS IN BED ON ROOM AIR TOLERATING WELL SAT 97 % WITH NO S/S OF RESPIRATORY DISTRESS OR SOB, BREATHING EVEN AND UNLABORED. CURRENTLY ON PUREE DIET TOLERATING WELL, IV ACCESS ON RIGHT FA #20 FLUSHED, PATENT AND INTACT WITH NO SIGNS OF INFILTRATION. NO COMPLAIN OF PAIN AT THIS TIME SAFETY MEASURES IMPLEMENTED. CALL LIGHT WITHIN REACH. BED ALARM ON. BED LOCKED AND IN LOWEST POSITION. WILL ENDORSE TO HAND HEEL SEAT FITTERAUTO TECH
--- NOTE | 2021-03-13 19:50 | NUR ---
RN OPENING NOTE RECEIVED PATIENT IN BED RESTING PT ON ROOM AIR TOLERATING WELL SAT 97 % WITH NO S/S OF RESPIRATORY DISTRESS OR SOB, BREATHING EVEN AND UNLABORED. IV NOTED ON R FA #20G. PATIENT COOPERATIVE AND IS IN NO PAIN OR DISTRESS AT THE TIME. SAFETY MEASURES IMPLEMENTED. CALL LIGHT WITHIN REACH, BED ALARM ON, BED LOCKED AND IN LOWEST POSITION.
[2021-03-13] MEDS: CEFTRIAXONE 1 G in IV D5W 50 ML IV SCH (21:23)
--- NOTE | 2021-03-13 22:30 | NUR ---
RN NOTE IV SITE INFILTRATED, STARTED IN IV LINE ON (R) HAND , #22G. FLUSHED AND PATENT NOW.
[2021-03-14] VITALS: BP 94/75
[2021-03-14 01:21] LABS: HEMOGLOBIN 12.4 g/dL (13.5-17.5)
[2021-03-14 04:00] VITALS: BP 108/81
--- NOTE | 2021-03-14 06:08 | NUR ---
RN CLOSING NOTE RECEIVED PATIENT IN BED RESTING PT ON ROOM AIR TOLERATING WELL SAT 99 % WITH NO S/S OF RESPIRATORY DISTRESS OR SOB, BREATHING EVEN AND UNLABORED. IV ON (R) HAND, #22 G. PATIENT ON TELE MONITOR, SR WITH HR 92.ALL PATIENT NEEDS MET THROUGHOUT THE SHIFT, PATIENT PAIN CONTROLLED AND REASSESSED ACCORDINGLY. PATIENT COOPERATIVE AND IS IN NO PAIN OR DISTRESS AT THE TIME. SAFETY MEASURES IMPLEMENTED. CALL LIGHT WITHIN REACH, BED ALARM ON, BED LOCKED AND IN LOWEST POSITION. WILL ENDORSE PLAN OF CARE TO ONCOMING MORNING NURSE.
[2021-03-14 06:51] LABS: BASOPHILS # (AUTO) 0.1 K/uL (0.0-0.2); BASOPHILS % (AUTO) 0.9 % (0.0-2.0); EOSINOPHILS % (AUTO) 0.4 % (0.0-6.0); HEMATOCRIT 38 % (39-51); HEMOGLOBIN 12.6 g/dL (13.5-17.5); LYMPHOCYTES # (AUTO) 1.9 K/uL (0.8-4.8); LYMPHOCYTES % (AUTO) 25.5 % (20.0-44.0); MEAN CORPUSCULAR HGB CONC 34 g/dl (31.0-36.0); MEAN CORPUSCULAR VOLUME 95 fL (80-96); MONOCYTES # (AUTO) 0.7 K/uL (0.1-1.30); MONOCYTES % (AUTO) 9.5 % (2.0-12.0); NEUTROPHILS # (AUTO) 4.8 K/uL (1.8-8.9); NEUTROPHILS % (AUTO) 63.7 % (43.0-81.0); PLATELET COUNT (AUTO) 330 K/uL (150-450); RED BLOOD CELL COUNT(AUTO) 3.93 MIL/uL (4.5-6.0); WHITE BLOOD COUNT (AUTO) 7.6 K/uL (4.3-11.0)
[2021-03-14] MEDS: IPRATROPIUM NEB FS 0.5 MG/2.5 ML AMPUL.NEB NEB SCH (07:05)
[2021-03-14 07:22] LABS: ALBUMIN 2.9 g/dL (3.4-5.0); BILIRUBIN,TOTAL 2.9 mg/dL (0.2-1.0); CALCIUM, SERUM 8.4 mg/dL (8.5-10.1); CREATININE 0.7 mg/dL (0.6-1.3); POTASSIUM 3.7 mmol/L (3.5-5.1); TOTAL PROTEIN, SERUM 6.9 g/dL (6.4-8.2)
[2021-03-14 08:00] VITALS: BP 100/72
--- NOTE | 2021-03-14 08:00 | NUR ---
RN OPENING NOTE PT AWAKE IN BED RESTING. ON RA O2 SAT >95% AND NO RESPIRATORY DISTRESS. ON MEMORIAL ADVISER. NO EDEMA PRESENT. SELF AMBULATORY. SKIN ISSUES PRESENT AND WOUND CARE TO BE APPLIED. PUREE DIET. R FA 22G IV PRESENT AND FLUSHES WELL. LABS AND ORDERS REVIEWED. SAFETY MEASURES IN PLACE. SIDE RAILS RAISED. BED LOWERED. CALL LIGHT WITHIN REACH. WILL CONTINUE TO MONITOR.
[2021-03-14] MEDS: BLOOD SUGAR DIAGNOSTIC 1 EACH STRIP IN SCH ×2 (08:09→11:45)
[2021-03-14] MEDS: PANTOPRAZOLE 40 MG VIAL IV SCH (08:09)
[2021-03-14] MEDS: FERROUS SULFATE (325 MG) 325 MG/TAB TABLET PO SCH (08:11)
[2021-03-14] MEDS: SPIRONOLACTONE 25 MG TABLET PO SCH (08:11)
[2021-03-14] MEDS: POTASSIUM CHLORIDE 20 MEQ TAB.PRT.SR PO SCH (08:12)
[2021-03-14] MEDS: FUROSEMIDE 40 MG TABLET PO SCH (08:12)
[2021-03-14 08:15] VITALS: BP 100/72
[2021-03-14] MEDS: THERAHONEY GEL 1.5 OZ TUBE TP SCH (08:15)
[2021-03-14] MEDS: CARVEDILOL 6.25 MG TABLET PO SCH (08:15)
[2021-03-14 10:08] LABS: HEMOGLOBIN 12.4 g/dL (13.5-17.5)
[2021-03-14] MEDS ORDERED: PANT40TA49 PO (11:19)
[2021-03-14] MEDS ORDERED: TRAZ-257 PO (11:19)
--- NOTE | 2021-03-14 12:08 | NUR ---
MAIL CARRIER NOTE PT DISCHARGED TO HOME. STABLE CONDITION. V/S CHECKED PRIOR TO D/C. [employer] EDUCATION UTILIZED AND GIVEN TO PT. SIGNED BY PT. BELONGINGS LIST CHECKED AND SIGNED BY PT. WOUND CARE DONE AND EDUCATION PROVIDED TO PT. WOUND CLINIC F/U IN 1 WEEK AND EDUCATION PROVIDED. PT REFUSED SKIN ASSESSMENT PRIOR TO D/C, STATING THAT HE WANTS TO GO HOME. IV LINE REMOVED. ID BAND REMOVED. PT ESCORTED OUTSIDE OF HOSPITAL WITH HEALTHCARE STAFF. PT TRANSPORTED HOME VIA PRIVATE CAR ACCOMPANIED BY .
== END 2021-03-14 11:55 | disposition home or self-care (01) | DRG 243 ==
LOC: ER 21:41 → TELE-TD 03-12 02:19 → TELE1 03-12 13:37
PROVIDERS: ADMIT Internal Medicine; ATTEND Internal Medicine
PROC: 0W9G3ZZ Drainage of Peritoneal Cavity, Percutaneous Approach (ICD-10-PCS; principal; 2021-03-12)
PROC: 0W993ZZ Drainage of Right Pleural Cavity, Percutaneous Approach (ICD-10-PCS; 2021-03-12)
PROC: 0DJ08ZZ Inspection of Upper Intestinal Tract, Via Natural or Artificial Opening Endoscopic (ICD-10-PCS; 2021-03-13)
DX: K21.00 Gastro-esophageal reflux disease with esophagitis, without bleeding (principal); I50.43 Acute on chronic combined systolic (congestive) and diastolic (congestive) heart failure; K25.4 Chronic or unspecified gastric ulcer with hemorrhage; R64 Cachexia; D68.9 Coagulation defect, unspecified; I42.9 Cardiomyopathy, unspecified; K70.31 Alcoholic cirrhosis of liver with ascites; J90 Pleural effusion, not elsewhere classified; K76.6 Portal hypertension; L97.929 Non-pressure chronic ulcer of unspecified part of left lower leg with unspecified severity; R04.2 Hemoptysis; R62.7 Adult failure to thrive; E11.51 Type 2 diabetes mellitus with diabetic peripheral angiopathy without gangrene; I11.0 Hypertensive heart disease with heart failure; E11.9 Type 2 diabetes mellitus without complications; E78.5 Hyperlipidemia, unspecified; E87.6 Hypokalemia; K29.80 Duodenitis without bleeding; K31.89 Other diseases of stomach and duodenum; K44.9 Diaphragmatic hernia without obstruction or gangrene; Z79.82 Long term (current) use of aspirin; Z79.84 Long term (current) use of oral hypoglycemic drugs; Z79.01 Long term (current) use of anticoagulants; Z79.51 Long term (current) use of inhaled steroids; Z79.899 Other long term (current) drug therapy; I25.10 Atherosclerotic heart disease of native coronary artery without angina pectoris; K80.20 Calculus of gallbladder without cholecystitis without obstruction; I87.301 Chronic venous hypertension (idiopathic) without complications of right lower extremity; F17.200 Nicotine dependence, unspecified, uncomplicated; J98.11 Atelectasis
CPT/HCPCS: 36415; 71045-TC; 76942-TC; 80048-TC; 80053-TC; 80076-TC; 82140-TC; 82962-TC; 83690-TC; 83735-TC; 83880; 84100-TC; 84484-TC; 85025-TC; 85027-TC; 85730-TC; 86850-TC; 87040-TC; 87070-TC; 87081-TC; 88108-TC; 88305-TC; 92526; 92611-TC; C9113; C9803; G0378; G0480; J0696; J1170; J1815; J1940; J2354; J3480; J3490; J7030; J7040; J7050; J7060; Q9967

== ENCOUNTER 2021-03-26 23:41 | Emergency (ER) | payer OTHER ==
[~2021-03-26] VITALS: Ht 188 cm; Wt 68.0 kg
[~2021-03-26 23:41] MED LIST changes: -APIX5TAB PO; -ASPI-1169 PO; +BUME2TAB7 PO; +DIGO125T PO; -FURO40TA5 PO; +TRAZ-257 PO; -ZOLP5TAB8 PO
--- NOTE | 2021-03-27 00:25 | NUR ---
lab at bedside
[2021-03-27] MEDS ORDERED: ONDANSETRON HCL/PF - ER 4 MG/2 ML VIAL IV ONE (00:30)
[2021-03-27] MEDS ORDERED: HYDROMORPHONE 1 MG/1 ML DISP.SYRIN IV ONE (00:30)
--- NOTE | 2021-03-27 00:30 | NUR ---
PATIENT BIBSELF C/O THROAT PAIN, EACH TIME HE EATS HE VOMITS THE FOOD. PATIENT IS A/O X 4 RR EVEN AND UNLABORED NO SOB NOTED, PT CONNECTED TO MONITORS.
[2021-03-27] MEDS ORDERED: ONDANSETRON HCL/PF 4 MG/2 ML VIAL ONE (00:32)
[2021-03-27] MEDS ORDERED: HYDROMORPHONE 1 MG/1 ML DISP.SYRIN ONE (00:32)
--- NOTE | 2021-03-27 00:40 | NUR ---
BROUGHT TO CT
--- NOTE | 2021-03-27 00:41 | NUR ---
COVID SWAB SENT TO LAB
[2021-03-27 00:43] LABS: BASOPHILS # (AUTO) 0.1 K/uL (0.0-0.2); EOSINOPHILS % (AUTO) 0.2 % (0.0-6.0); HEMATOCRIT 46 % (39-51); HEMOGLOBIN 14.8 g/dL (13.5-17.5); LYMPHOCYTES # (AUTO) 1.4 K/uL (0.8-4.8); LYMPHOCYTES % (AUTO) 21.4 % (20.0-44.0); MEAN CORPUSCULAR HGB CONC 33 g/dl (31.0-36.0); MEAN CORPUSCULAR VOLUME 96 fL (80-96); MONOCYTES # (AUTO) 0.5 K/uL (0.1-1.30); MONOCYTES % (AUTO) 7.5 % (2.0-12.0); NEUTROPHILS # (AUTO) 4.7 K/uL (1.8-8.9); NEUTROPHILS % (AUTO) 69.9 % (43.0-81.0); PLATELET COUNT (AUTO) 250 K/uL (150-450); RED BLOOD CELL COUNT(AUTO) 4.74 MIL/uL (4.5-6.0); WHITE BLOOD COUNT (AUTO) 6.8 K/uL (4.3-11.0)
[2021-03-27 00:52] LABS: SERUM AMMONIA 22 umol/L (11-32)
--- NOTE | 2021-03-27 00:53 | NUR ---
RETURNED FROM RADIOLOGY
[2021-03-27 01:10] LABS: BILIRUBIN,URINE MODERATE (NEGATIVE); COLOR,URINE AMBER (YELLOW); LEUKOCYTE ESTERASE ,URINE NEGATIVE (NEGATIVE); NITRITE, URINE POSITIVE (NEGATIVE); PROTEIN,URINE 100 mg/dl (NEGATIVE); UGLUCOSE NEGATIVE (NEGATIVE)
[2021-03-27 01:13] LABS: ALANINE AMINOTRANSFERASE 27 U/L (12-78); ALBUMIN 3.1 g/dL (3.4-5.0); ALKALINE PHOSPHATASE 137 U/L (46-116); ASPARTATE AMINOTRANSFERASE 33 U/L (15-37); BILIRUBIN,DIRECT 1.4 mg/dL (0.0-0.2); CALCIUM, SERUM 8.5 mg/dL (8.5-10.1); CARBON DIOXIDE 29 mmol/L (21-32); CHLORIDE 100 mmol/L (98-107); CREATININE 0.8 mg/dL (0.6-1.3); GLUCOSE 61 mg/dL (74-106); LIPASE 34 U/L (73-393); POTASSIUM 3.7 mmol/L (3.5-5.1); SODIUM SERUM 140 mmol/L (136-145); TOTAL PROTEIN, SERUM 7.5 g/dL (6.4-8.2); UREA NITROGEN, BLOOD 14 mg/dL (7-18)
[2021-03-27 01:23] LABS: OCCULT BLOOD STOOL NEGATIVE (NEGATIVE)
[2021-03-27] MEDS ORDERED: VANCOMYCIN 1 GM in IV D5W 250 ML IV ONE (01:30)
[2021-03-27] MEDS ORDERED: VANCOMYCIN 1 GM VIAL ONE (01:31)
--- NOTE | 2021-03-27 04:04 | NUR ---
Spoke with Kaci Supervisor [employer] for clinical
--- NOTE | 2021-03-27 04:23 | NUR ---
ACCEPTED BY DR WALKER AT [facility]. AWAITING CALL BACK TO CONFIRM RIDE
--- NOTE | 2021-03-27 06:34 | NUR ---
followed up pt transfer. Still awaiting for bed and transport info.
[2021-03-27 08:19] LABS: RBC,URINE 0-3 /HPF (0-2); WBC,URINE 0-2 /HPF (0-3)
--- NOTE | 2021-03-27 09:21 | NUR ---
[facility] CALLED VENEER JOINTER HELPER PAGED.
[2021-03-27] MEDS ORDERED: CLIN150C16 PO (10:10)
[2021-03-27 10:15] LABS: BACTERIA,URINE Moderate /HPF (None Seen); SQUAMOUS EPITHELIAL CELL,UR Few /HPF (None Seen)
[2021-03-27 10:16] LABS: CALCIUM OXALATE CRYSTALS,UR Many /HPF (None Seen)
[2021-03-27 10:32] VITALS: BP 121/87
== END 2021-03-27 10:32 | disposition home or self-care (01) ==
LOC: ER 23:42
DX: L03.116 Cellulitis of left lower limb (principal); R60.0 Localized edema; I11.0 Hypertensive heart disease with heart failure; I50.9 Heart failure, unspecified; K80.20 Calculus of gallbladder without cholecystitis without obstruction; R09.89 Other specified symptoms and signs involving the circulatory and respiratory systems; R11.10 Vomiting, unspecified; E11.9 Type 2 diabetes mellitus without complications; Z79.84 Long term (current) use of oral hypoglycemic drugs; Z79.899 Other long term (current) drug therapy; R91.8 Other nonspecific abnormal finding of lung field; F17.210 Nicotine dependence, cigarettes, uncomplicated; Z20.822 Contact with and (suspected) exposure to COVID-19; R18.8 Other ascites
CPT/HCPCS: 36415; 71045; 71250; 74176; 80048; 80076; 81001; 82140; 82272; 83690; 84484; 85025; 85730; 87081; 87086; 87426; 93005; 93970; 96365; 96375; 99285; 99406; C9803; J1170; J2405; J3370